=== PATIENT | female | born 1935 | race Caucasian/White ===

== ENCOUNTER 2017-10-22 17:23 | Inpatient (IN) | payer OTHER ==
[2017-10-22 19:07] LABS: Urine Blood NEGATIVE (NEG); Urine Glucose NEGATIVE (NEG); Urine Protein NEGATIVE (NEG); Urine Specific Gravity 1.015 (1.005-1.030)
[2017-10-22] MEDS ORDERED: PANTOPRAZOLE 40 MG INJ ONE (19:10)
[2017-10-22] MEDS ORDERED: NA CHLORIDE 0.9% 500 ML ONE (19:10)
[2017-10-22] MEDS ORDERED: CEFTRIAXONE/SWI 1gm 1 GM/10 ML SYR ONE (19:10)
[2017-10-22] MEDS ORDERED: ONDANSETRON 4 MG/2 ML VIAL ONE ×2 (19:10→20:41)
[2017-10-22] MEDS ORDERED: NA CHLORIDE 0.9% 1,000 ML ONE (19:11)
--- NOTE | 2017-10-22 19:28 | RAD REPORT ---
EXAM DESCRIPTION: Keo Single View10/22/2017 7:14 pm CLINICAL HISTORY: cough COMPARISON: January 2017 FINDINGS: The lungs appear clear of acute infiltrate. The heart is mildly to moderately enlarged. P acemaker leads are in place. IMPRESSION: No acute abnormalities displayed
[2017-10-22 19:46] LABS: Absolute Lymphocytes (CBC) 1.4 K/uL (0.7-4.9); Absolute Monocytes 0.4 K/uL (0.1-1.3); Absolute Neutrophil 3.8 K/uL (1.8-8.0); Basophils % 0.8 % (0-1.3); Eosinophils % 1.5 % (0-4.4); Hematocrit 36.6 % (36.0-45.0); MCH 29.8 pg (27.0-35.0); MCV 89.5 fL (80-100); MPV 7.7 fL (7.6-11.3); Monocytes % 7.4 % (3.3-12.3); Protime INR 1.08; RBC Red Blood Cell Count 4.09 M/uL (3.86-4.86)
[2017-10-22 19:50] LABS: Potassium 3.5 mEq/L (3.6-5.0)
[2017-10-22 19:56] LABS: Albumin 4.1 g/dL (3.2-5.5); Bilirubin Direct 0.1 mg/dL (0-0.2); Bilirubin Total 0.7 mg/dL (0.3-1.2); Magnesium 1.5 mg/dL (1.8-2.5); Protein, Total 8.1 g/dL (6.0-8.3)
[2017-10-22 19:59] LABS: CKMB Creatine Kinase MB 2.2 ng/ml (0.3-4.0)
--- NOTE | 2017-10-22 20:32 | EDPHYS ---
Physician Documentation [facility] Name: Mari Chirinos Age: 82 yrs Sex: Female : 1935 Arrival Date: 10/22/2017 Time: 17:27 Bed 3 Private MD: Manish Hoffman ED Physician Joe Valdez HPI: 10/22 18:38 This 82 yrs old Female presents to ER via Ambulatory with complaints of amanda Nausea/Vomiting. 18:38 The patient presents to the emergency department with nausea, vomiting, abdominal pain. amanda Onset: The symptoms/episode began/occurred 2 day(s) ago. Possible causes: unknown. The symptoms are aggravated by nothing. Associated signs and symptoms: The patient has no apparent associated signs or symptoms. Severity of symptoms: At their worst the symptoms were mild in the emergency department the symptoms are unchanged. The patient has experienced similar episodes in the past, a few times. Historical: - Allergies: 17:34 Codeine; aj 17:34 Macrobid; aj - Home Meds: 17:34 amlodipine 10 mg tab 1 tab once daily [Active]; gabapentin 100 mg Oral cap 3 times per aj day [Active]; losartan-hydrochlorothiazide 100-25 mg Oral tab 1 tab once daily [Active]; metformin 500 mg Oral tab 2 tabs 2 times per day [Active]; omeprazole 20 mg Oral cpDR 1 cap once daily [Active]; - PMHx: 17:34 Diabetes - NIDDM; GERD; Hypertension; neuropathy; Pacemaker; aj - PSHx: 17:34 Bilateral Knee Replacements; Hysterectomy; Vaginal Surgery; aj - Immunization history:: Adult Immunizations up to date. - Social history:: Smoking status: Patient/guardian denies using tobacco. - Ebola Screening: : Patient negative for fever greater than or equal to 101.5 degrees Fahrenheit, and additional compatible Ebola Virus Disease symptoms Patient denies exposure to infectious person Patient denies travel to an Ebola-affected area in the 21 days before illness onset No symptoms or risks identified at this time. ROS: 18:39 Constitutional: Negative for fever, chills, and weight loss, Eyes: Negative for injury, amanda pain, redness, and discharge, ENT: Negative for injury, pain, and discharge, Neck: Negative for injury, pain, and swelling, Cardiovascular: Negative for chest pain, palpitations, and edema, Respiratory: Negative for shortness of breath, cough, wheezing, and pleuritic chest pain, Back: Negative for injury and pain, : Negative for injury, bleeding, discharge, and swelling, MS/Extremity: Negative for injury and deformity, Skin: Negative for injury, rash, and discoloration, Neuro: Negative for headache, weakness, numbness, tingling, and seizure, Psych: Negative for depression, anxiety, suicide ideation, homicidal ideation, and hallucinations, Allergy/Immunology: Negative for hives, rash, and allergies, Endocrine: Negative for neck swelling, polydipsia, polyuria, polyphagia, and marked weight changes, Hematologic/Lymphatic: Negative for swollen nodes, abnormal bleeding, and unusual bruising. 18:39 Abdomen/GI: Positive for abdominal pain, nausea, vomiting, of the right upper quadrant, left upper quadrant, right lower quadrant and left lower quadrant. Exam: 18:39 Constitutional: This is a well developed, well nourished patient who is awake, alert, amanda and in no acute distress. Head/Face: Normocephalic, atraumatic. Eyes: Pupils equal round and reactive to light, extra-ocular motions intact. Lids and lashes normal. Conjunctiva and sclera are non-icteric and not injected. Cornea within normal limits. Periorbital areas with no swelling, redness, or edema. ENT: Nares patent. No nasal discharge, no septal abnormalities noted. Tympanic membranes are normal and external auditory canals are clear. Oropharynx with no redness, swelling, or masses, exudates, or evidence of obstruction, uvula midline. Mucous membranes moist. Neck: Trachea midline, no thyromegaly or masses palpated, and no cervical lymphadenopathy. Supple, full range of motion without nuchal rigidity, or vertebral point tenderness. No Meningismus. Chest/axilla: Normal chest wall appearance and motion. Nontender with no deformity. No lesions are appreciated. Cardiovascular: Regular rate and rhythm with a normal S1 and S2. No gallops, murmurs, or rubs. Normal PMI, no JVD. No pulse deficits. Respiratory: Lungs have equal breath sounds bilaterally, clear to auscultation and percussion. No rales, rhonchi or wheezes noted. No increased work of breathing, no retractions or nasal flaring. Back: No spinal tenderness. No costovertebral tenderness. Full range of motion. Female : Normal external genitalia. Skin: Warm, dry with normal turgor. Normal color with no rashes, no lesions, and no evidence of cellulitis. MS/ Extremity: Pulses equal, no cyanosis. Neurovascular intact. Full, normal range of motion. Neuro: Awake and alert, GCS 15, oriented to person, place, time, and situation. Cranial nerves II-XII grossly intact. Motor strength 5/5 in all extremities. Sensory grossly intact. Cerebellar exam normal. Normal gait. Psych: Awake, alert, with orientation to person, place and time. Behavior, mood, and affect are within normal limits. 18:39 Abdomen/GI: Inspection: distension, Bowel sounds: normal, Palpation: mild abdominal tenderness, in all quadrants, Liver: no appreciated palpable abnormalities, Hernia: not appreciated. Vital Signs: 17:34 BP 157 / 78; Pulse 76; Resp 16; Temp 98.1; Pulse Ox 98% on R/A; Weight 79.38 kg; Height aj 5 ft. 2 in. (157.48 cm); 19:00 BP 140 / 77; Pulse 60; Resp 16; Pulse Ox 97% ; bp 20:01 BP 142 / 70; Pulse 68; Resp 16; Pulse Ox 96% on R/A; rv 21:00 BP 152 / 98; Pulse 65; Resp 16; Pulse Ox 99% ; bp 22:00 BP 149 / 80; Pulse 71; Resp 16; Pulse Ox 98% ; bp 17:34 Body Mass Index 32.01 (79.38 kg, 157.48 cm) MDM: 18:16 Patient medically screened. [facility] 18:40 Data reviewed: vital signs, nurses notes, lab test result(s), EKG, radiologic studies, [facility] CT scan, plain films. 10/22 18:31 Order name: Urine Dipstick--Ancillary (enter results); Complete Time: 20:26 10/22 18:36 Order name: Basic Metabolic Panel; Complete Time: 20:26 [facility] 10/22 18:36 Order name: BNP; Complete Time: 20:26 [facility] 10/22 18:36 Order name: CBC with Diff; Complete Time: 20:26 [facility] 10/22 18:36 Order name: Ckmb; Complete Time: 20:26 [facility] 10/22 18:36 Order name: CPK; Complete Time: 20:26 [facility] 10/22 18:36 Order name: LFT's; Complete Time: 20:26 [facility] 10/22 18:36 Order name: Magnesium; Complete Time: 20:26 [facility] 10/22 18:36 Order name: PT-INR; Complete Time: 20:26 [facility] 10/22 18:36 Order name: Ptt, Activated; Complete Time: 20:26 [facility] 10/22 18:36 Order name: Troponin (emerg Dept Use Only); Complete Time: 20:26 [facility] 10/22 18:36 Order name: Lipase; Complete Time: 20:26 [facility] 10/22 18:37 Order name: Urine Culture [facility] 10/22 20:28 Order name: Urine Osmolality [facility] 10/22 18:36 Order name: XRAY Chest (1 view); Complete Time: 20:26 [facility] 10/22 18:36 Order name: EKG; Complete Time: 18:37 [facility] 10/22 18:36 Order name: Cardiac monitoring; Complete Time: 19:16 [facility] 10/22 18:36 Order name: EKG - Nurse/Tech; Complete Time: 19:15 [facility] 10/22 18:36 Order name: IV Saline Lock; Complete Time: 18:46 [facility] 10/22 18:36 Order name: CT Abd/Pelvis - W/Contrast; Complete Time: 20:39 [facility] 10/22 20:28 Order name: Osmolality, Serum [facility] 10/22 20:28 Order name: Urine Sodium Random [facility] 10/22 18:36 Order name: Labs collected and sent; Complete Time: 18:46 [facility] 10/22 18:36 Order name: O2 Per Protocol; Complete Time: 18:46 [facility] 10/22 18:36 Order name: O2 Sat Monitoring; Complete Time: 18:46 [facility] 10/22 18:36 Order name: Urine Dipstick-Ancillary (obtain specimen); Complete Time: 18:46 [facility] Administered Medications: Discontinued: NS 0.9% 1000 ml IV at 125 ml/hr continuous 19:00 Drug: NS 0.9% 500 ml Route: IV; Rate: bolus; Site: left antecubital; bp 19:00 Drug: NS 0.9% 1000 ml Route: IV; Rate: 125 ml/hr; Site: left antecubital; bp 19:00 Drug: ProTONIX 40 mg Route: IVP; Site: left antecubital; bp 19:27 Follow up: Response: Nausea is decreased bp 19:00 Drug: Zofran 4 mg Route: IVP; Site: left antecubital; bp 19:28 Follow up: Response: Nausea is decreased bp 19:00 Drug: Rocephin - (cefTRIAXone) 1 grams Route: IVPB; Infused Over: 30 mins; Site: left bp antecubital; 20:26 Follow up: Response: No adverse reaction rv 20:45 Drug: Magnesium Sulfate 1 grams Route: IVPB; Infused Over: 1 hrs; Site: left bp antecubital; 21:18 Follow up: IV Status: Completed infusion bp 20:45 Drug: NS 0.9% with KCl 20 mEq/L 1000 ml Route: IV; Rate: 100 ml/hr; Site: left bp antecubital; 21:15 Drug: Zofran 4 mg Route: IVP; Site: left antecubital; bp 21:17 Follow up: Response: Marked relief of symptoms bp Disposition: 10/22/17 20:32 Hospitalization ordered by Lyric Jiménez for Inpatient Admission. Preliminary diagnosis are Abdominal tenderness, Cystitis, Vomiting, Hypokalemia, Hypomagnesemia. - Bed requested for Telemetry/MedSurg (Inpatient). - Status is Inpatient Admission. bp - Condition is Fair. - Problem is new. - Symptoms have improved. UTI on Admission? Yes Signatures: Dispatcher [employer] EDMS Naomi Vee RN RN kl Myers, Amanda, RN RN aj Anderson, Corey, MD MD cha Peltier, Brian, RN RN bp Vicente, Ronaldo RN rv Corrections: (The following items were deleted from the chart) 21:31 20:32 Hospitalization Ordered by Lyric Jiménez MD for Inpatient Admission. Preliminary diagnosis is Abdominal tenderness; Cystitis; Vomiting; Hypokalemia; Hypomagnesemia. Bed requested for Telemetry/MedSurg (Inpatient). Status is Inpatient Admission. Condition is Fair. Problem is new. Symptoms have improved. UTI on Admission? Yes. amanda 22:17 21:31 10/22/2017 20:32 Hospitalization Ordered by Lyric Jiménez MD for Inpatient bp Admission. Preliminary diagnosis is Abdominal tenderness; Cystitis; Vomiting; Hypokalemia; Hypomagnesemia. Bed requested for Telemetry/MedSurg (Inpatient). Status is Inpatient Admission. Condition is Fair. Problem is new. Symptoms have improved. UTI on Admission? Yes. kl
--- NOTE | 2017-10-22 20:32 | ER ---
Nurse's Notes [facility] Name: Mari Chirinos Age: 82 yrs Sex: Female : 1935 Arrival Date: 10/22/2017 Time: 17:27 Bed 3 Private MD: Manish Hoffman Diagnosis: Abdominal tenderness;Cystitis;Vomiting;Hypokalemia;Hypomagnesemia Presentation: 10/22 17:32 Presenting complaint: Patient states: Nausea for 4 days, vomiting x 1 episode. aj Transition of care: patient was not received from another setting of care. Onset of symptoms was October 18, 2017. Risk Assessment: Do you want to hurt yourself or someone else? Patient reports no desire to harm self or others. Care prior to arrival: None. 17:32 Method Of Arrival: Ambulatory aj 17:32 Acuity: JOJO 3 aj 21:59 Initial Sepsis Screen: Does the patient meet any 2 criteria? No. Patient's initial bp sepsis screen is negative. Does the patient have a suspected source of infection? No. Patient's initial sepsis screen is negative. Triage Assessment: 17:34 General: Appears in no apparent distress. comfortable, Behavior is calm, cooperative, aj appropriate for age. Pain: Denies pain. Neuro: Level of Consciousness is awake, alert, obeys commands, Oriented to person, place, time, situation, Appropriate for age. Respiratory: Airway is patent Respiratory effort is even, unlabored, Respiratory pattern is regular, symmetrical. GI: Reports nausea, vomiting. Derm: Skin is intact, is healthy with good turgor, Skin is pink, warm \T\ dry. normal. Historical: - Allergies: 17:34 Codeine; aj 17:34 Macrobid; aj - Home Meds: 17:34 amlodipine 10 mg tab 1 tab once daily [Active]; gabapentin 100 mg Oral cap 3 times per aj day [Active]; losartan-hydrochlorothiazide 100-25 mg Oral tab 1 tab once daily [Active]; metformin 500 mg Oral tab 2 tabs 2 times per day [Active]; omeprazole 20 mg Oral cpDR 1 cap once daily [Active]; - PMHx: 17:34 Diabetes - NIDDM; GERD; Hypertension; neuropathy; Pacemaker; aj - PSHx: 17:34 Bilateral Knee Replacements; Hysterectomy; Vaginal Surgery; aj - Immunization history:: Adult Immunizations up to date. - Social history:: Smoking status: Patient/guardian denies using tobacco. - Ebola Screening: : Patient negative for fever greater than or equal to 101.5 degrees Fahrenheit, and additional compatible Ebola Virus Disease symptoms Patient denies exposure to infectious person Patient denies travel to an Ebola-affected area in the 21 days before illness onset No symptoms or risks identified at this time. Screenin:00 Abuse screen: Denies threats or abuse. Denies injuries from another. Nutritional sg screening: No deficits noted. Tuberculosis screening: No symptoms or risk factors identified. Never had TB. Fall Risk None identified. Assessment: 18:00 General: Appears in no apparent distress. comfortable, well groomed, well developed, sg well nourished, Behavior is calm, cooperative, appropriate for age. Pain: Denies pain. Neuro: Level of Consciousness is awake, alert, obeys commands, Oriented to person, place, time, situation, Sorting Livestock Worker are equal bilaterally Speech is normal, Facial symmetry appears normal. Cardiovascular: Capillary refill is brisk in bilateral fingers Patient's skin is warm and dry. Chest pain is denied. Respiratory: Airway is patent Respiratory effort is even, unlabored, Respiratory pattern is regular, symmetrical, Breath sounds are clear. GI: Abdomen is round non-distended, Reports intolerance of food, nausea, vomiting, decreased appetite. : No signs and/or symptoms were reported regarding the genitourinary system. EENT: No signs and/or symptoms were reported regarding the EENT system. Derm: Skin is pink, warm \T\ dry. Musculoskeletal: No signs and/or symptoms reported regarding the musculoskeletal system. 18:20 Reassessment: Patient appears in no apparent distress at this time. Penny hvac maintenance technician at chairside, pt refused to get into the bed, requests to stay in the wheelchair, to get IV initiated. 19:00 Reassessment: RECD REPORT FROM RODRIGO GUTIERREZ. 82YO WF P/W N/V AND FATIGUE. AOx4, VS STABLE ON bp MONITOR, NO VOMITING AT THIS TIME. CT PENDING. 20:02 General: daughter's cell phone number: ([phone]) Nicole Chirinos. rv 20:12 Reassessment: PT TO CT WITH VICE [employer]ELOPMENT. rv 21:30 Reassessment: ADMIT MD AT B/S, BED ASSIGNMENT PENDING. bp Vital Signs: 17:34 BP 157 / 78; Pulse 76; Resp 16; Temp 98.1; Pulse Ox 98% on R/A; Weight 79.38 kg; Height aj 5 ft. 2 in. (157.48 cm); 19:00 BP 140 / 77; Pulse 60; Resp 16; Pulse Ox 97% ; bp 20:01 BP 142 / 70; Pulse 68; Resp 16; Pulse Ox 96% on R/A; rv 21:00 BP 152 / 98; Pulse 65; Resp 16; Pulse Ox 99% ; bp 22:00 BP 149 / 80; Pulse 71; Resp 16; Pulse Ox 98% ; bp 17:34 Body Mass Index 32.01 (79.38 kg, 157.48 cm) aj ED Course: 17:27 Patient arrived in ED. sb2 17:27 Manish Hoffman MD is Private Physician. sb2 17:33 Triage completed. aj 17:34 Arm band placed on left wrist. Patient placed in an exam room. aj 18:15 Inserted saline lock: 22 gauge in right antecubital area, using aseptic technique. 3 Blood collected. 18:16 Joe Valdez MD is Attending Physician. amanda 18:45 IV discontinued, intact, bleeding controlled, No redness/swelling at site. Pressure dh3 dressing applied. 18:45 Initial lab(s) drawn, by wy, sent to lab. Inserted saline lock: 20 gauge in left 3 antecubital area, using aseptic technique. Blood collected. 18:46 Urine collected: hat, clear. dh3 19:00 Patient has correct armband on for positive identification. Bed in low position. Call bp light in reach. Adult w/ patient. 19:11 X-ray completed. Portable x-ray completed in exam room. Patient tolerated procedure kc2 well. 19:12 XRAY Chest (1 view) In Process Unspecified. EDMS 19:15 EKG done, by ED staff, reviewed by Joe Valdez MD. dh3 19:26 Manish Lucas, MATT is Primary Nurse. bp 20:14 CT Abd/Pelvis - W/Contrast In Process Unspecified. EDMS 20:30 Lyric Jiménez MD is Hospitalizing Provider. amanda 21:58 No provider procedures requiring assistance completed. Patient admitted, IV remains in bp place. Administered Medications: Discontinued: NS 0.9% 1000 ml IV at 125 ml/hr continuous 19:00 Drug: NS 0.9% 500 ml Route: IV; Rate: bolus; Site: left antecubital; bp 19:00 Drug: NS 0.9% 1000 ml Route: IV; Rate: 125 ml/hr; Site: left antecubital; bp 19:00 Drug: ProTONIX 40 mg Route: IVP; Site: left antecubital; bp 19:27 Follow up: Response: Nausea is decreased bp 19:00 Drug: Zofran 4 mg Route: IVP; Site: left antecubital; bp 19:28 Follow up: Response: Nausea is decreased bp 19:00 Drug: Rocephin - (cefTRIAXone) 1 grams Route: IVPB; Infused Over: 30 mins; Site: left bp antecubital; 20:26 Follow up: Response: No adverse reaction rv 20:45 Drug: Magnesium Sulfate 1 grams Route: IVPB; Infused Over: 1 hrs; Site: left bp antecubital; 21:18 Follow up: IV Status: Completed infusion bp 20:45 Drug: NS 0.9% with KCl 20 mEq/L 1000 ml Route: IV; Rate: 100 ml/hr; Site: left bp antecubital; 21:15 Drug: Zofran 4 mg Route: IVP; Site: left antecubital; bp 21:17 Follow up: Response: Marked relief of symptoms bp Outcome: 20:32 Decision to Hospitalize by Provider. [facility] 21:59 Condition: stable bp 21:59 Instructed on the need for admit. 22:12 Admitted to Med/surg accompanied by tech, family with patient, via wheelchair, room bp 209, with chart, Report called to NELA GUTIERREZ 22:17 Patient left the ED. bp Signatures: Dispatcher [employer] EDMS Arnaud Driscoll RN Salina Porter RN RN aj Anderson, Corey, MD MD cha Carr, Kelsie kc2 Penny Fowler 3 Manish Lucas RN RN bp Billeau, Sheri sb2 Andrew Cohen RN RN rv
--- NOTE | 2017-10-22 20:34 | RAD REPORT ---
EXAM DESCRIPTION: CT - Abdomen Pelvis W Contrast - 10/22/2017 8:14 pm CLINICAL HISTORY: Abdominal pain. Nausea for 4 days COMPARISON: 2016 TECHNIQUE: Computed axial tomography of the abdomen and pelvis was obtained. 100 cc Isovue-300 is ad ministered intravenously. Oral contrast was given. All CT scans are performed using dose optimization technique as appropriate and may include automated exposure control or mA/KV adjustment according to patient size. FINDINGS: A couple of subcentimeter low-density lesions within the liver are unchanged likely repres enting cysts. The gallbladder has been removed. Prominence of the biliary tree is stable. The spleen, pancreas and adrenals appear unremarkable. Extrarenal pelves are present. Borderline right hydronephrosis is seen. It is unchanged. A left renal arterial calcifications seen. A renal calculus is not noted. There is no evidence of diverticulitis. A small to moderate hiatal hernia is seen. Spondylosis involves lumbar spine resulting in spinal stenosis. IMPRESSION: Borderline right hydronephrosis unchanged from the prior exam. It is unclear whether th e dilatation is simply the result of an extrarenal pelvis or a mild UPJ stricture. Small to moderate hiatal hernia Spondylosis involving lumbar spine resulting in spinal stenosis
[2017-10-22] MEDS ORDERED: MAGNESIUM SULFATE 1 gm IVPB 1 GM/100 ML BAG IV ONE ×2 (20:37→22:30)
[2017-10-22] MEDS ORDERED: NS KCL 20MEQ 1,000 ML IV ONE (20:37)
--- NOTE | 2017-10-22 21:10 | P.HP ---
Certification for Inpatient Patient admitted to: Observation With expected LOS: <2 Midnights Practitioner: I am a practitioner with admitting privileges, knowledge of patient current condition, hospital course, and medical plan of care. Services: Services provided to patient in accordance with Admission requirements found in Title 42 Section 412.3 of the Code of Federal Regulations Patient History Date of Service: 10/22/17 Reason for admission: volume depletion History of Present Illness: Ms Chirinos is an 82 years old woman with history of HTN, DM II insulin dependent , came to ED complaining of abdominal pain, diffuse, associated with nausea and vomiting. Her symptoms started about 3 days ago. She is not able to tolerate food, due to nausea. She partially was drinking fluids, but not enough. She denied diarrhea, fever or chills. No burning urination, cough or chest pain either. At arrival she still feels nauseated, lab work was remarkable for hyponatremia, and hypochloremia, likely secondary to volume depletion. UA was abnormal as well consistent with UTI. She is afebrile. Allergies codeine [Codeine] Allergy (Verified 10/26/15 00:41) Itching/Hives/Rash pregabalin [From Lyrica] Adverse Reaction (Unknown, Verified 02/03/17 10:28) unknown ENAVAR Allergy (Uncoded 10/02/15 15:16) Itching/Hives/Rash Home Medications: Metformin HCl [Metformin HCl ER] 2 tab PO BID 02/10/12 Amlodipine [Norvasc*] 10 mg PO DAILY 10/02/15 Losartan Potassium [Cozaar] 100 mg PO DAILY 02/03/17 Meloxicam [Mobic*] 7.5 mg PO DAILY 02/03/17 Omeprazole 20 mg PO BEDTIME 02/03/17 traMADol HCL [Ultram*] 1 tab PO BID PRN 02/03/17 - Past Medical/Surgical History Diabetic: Yes -: DM-2 (NIDDM) -: DYSLIPIDEMIA -: HYPERTENSION -: CHOLECYSTECTOMY -: APPENDECTOMY -: BILATERAL CATARACTS -: knee replacement bilat/biomet product -: carpul tunnel bilat wrist/hands -: hip right replacement -: r.shoulder replacement - Family History Family History: Reviewed- Non-Contributory - Social History Smoking Status: Never smoker Alcohol use: No CD- Drugs: No Caffeine use: Yes Place of Residence: Home Review of Systems 10-point ROS is otherwise unremarkable Physical Examination - Physical Exam General: Alert, In no apparent distress HEENT: Atraumatic, PERRLA, Mucous membr. moist/pink, EOMI, Sclerae nonicteric Neck: Supple, 2+ carotid pulse no bruit, No LAD, Without JVD or thyroid abnormality Respiratory: Clear to auscultation bilaterally, Normal air movement Cardiovascular: Regular rate/rhythm, Normal S1 S2 Gastrointestinal: Normal bowel sounds, No tenderness Musculoskeletal: No tenderness Integumentary: No rashes Neurological: Normal speech, Normal strength at 5/5 x4 extr, Normal tone, Normal affect Lymphatics: No axilla or inguinal lymphadenopathy - Studies Laboratory Data (last 24 hrs) 10/22/17 19:15: PT 12.8 H, INR 1.08, APTT 27.1 10/22/17 19:15: WBC 5.7, Hgb 12.2, Hct 36.6, Plt Count 205 10/22/17 19:15: B-Natriuretic Peptide 223 H 10/22/17 19:15: Sodium 125 L, Potassium 3.5 L, BUN 10, Creatinine 0.67, Glucose 104, Magnesium 1.5 L, Total Bilirubin 0.7, AST 29, ALT 18, Alkaline Phosphatase 64, Lipase 20 L Assessment and Plan - Problems (Diagnosis) (1) Nausea & vomiting Current Visit: Yes Status: Acute Qualifiers: Vomiting type: unspecified Vomiting Intractability: unspecified Qualified Code(s): R11.2 - Nausea with vomiting, unspecified (2) Hyponatremia Current Visit: Yes Status: Acute (3) Abdominal pain Onset Date: 10/28/15 Current Visit: No Status: Acute Qualifiers: Abdominal location: generalized Qualified Code(s): R10.84 - Generalized abdominal pain (4) Hypokalemia Onset Date: 10/28/15 Current Visit: No Status: Acute (5) UTI (urinary tract infection) Onset Date: 10/28/15 Current Visit: No Status: Acute Qualifiers: Urinary tract infection type: acute cystitis Hematuria presence: without hematuria Qualified Code(s): N30.00 - Acute cystitis without hematuria (6) Vulva cancer Onset Date: 10/28/15 Current Visit: No Status: Acute (7) Diabetes mellitus, type II Onset Date: 09/13/17 Current Visit: No Status: Chronic Qualifiers: Diabetes mellitus terminal operations supervisor insulin use: without penitentiary use Diabetes mellitus complication status: without complication Qualified Code(s): E11.9 - Type 2 diabetes mellitus without complications - Plan #1 nausea and vomiting: Possible secondary to UTI. CT abd/pelvis shows borderline right hydronephrosis unchanged from the prior exam. She will need Urologist evaluation upon discharge. Will give antiemetic medication, start clear liquids when symptoms improved. #2 Hyponatremia: likely due to volume depletion, will order IV NS infusion. She was also on HCTZ, that might contribute to have low sodium levels. Will hold this medication at this point. #3 UTI: will start IV Rocephin, urine culture in process. #4 DM: continue SSI. - Advance Directives Does patient have a Living Will: Yes Does patient have a Durable POA for Healthcare: No - Code Status/Comfort Care Code Status Assessed: Yes Code Status: Full Code
[2017-10-22] MEDS ORDERED: ACETAMINOPHEN 500 MG TAB PO PRN (22:14)
[2017-10-22] MEDS ORDERED: ONDANSETRON 4 MG/2 ML VIAL IV PRN (22:14)
[2017-10-22] MEDS: NA CHLORIDE 0.9% 1,000 ML IV SCH (23:17)
[2017-10-23 00:06] VITALS: O2SAT 97; BMI 31.3
[2017-10-23 05:09] LABS: Absolute Lymphocytes (CBC) 1.1 K/uL (0.7-4.9); Absolute Monocytes 0.5 K/uL (0.1-1.3); Absolute Neutrophil 3.5 K/uL (1.8-8.0); Basophils % 0.5 % (0-1.3); Eosinophils % 3.2 % (0-4.4); Hematocrit 31.3 % (36.0-45.0); Lymphocytes % 20.4 % (15.3-44.8); MCH 31.1 pg (27.0-35.0); MCV 87.8 fL (80-100); MPV 7.5 fL (7.6-11.3); Monocytes % 9.2 % (3.3-12.3); RBC Red Blood Cell Count 3.56 M/uL (3.86-4.86)
[2017-10-23 05:24] LABS: Magnesium 2.2 mg/dL (1.8-2.5); Potassium 3.3 mEq/L (3.6-5.0)
[2017-10-23] MEDS ORDERED: POTASSIUM 25 MEQ EFFERV TAB PO ONE (05:34)
--- NOTE | 2017-10-23 06:48 | EKG ---
Test Date: 2017-10-22 Test Time: 18:59:36 Senior Quality Control Technician: VINICIUS MEASUREMENT RESULTS: Intervals: Rate: 65 SD: 256 QRSD: 206 QT: 494 QTc: 513 [place]: P: SD: 256 QRS: -67 T: 103 INTERPRETIVE STATEMENTS: AV dual-paced rhythm with prolonged AV conduction with occasional ventricular-paced complexes Abnormal ECG Compared to ECG 02/02/2017 22:48:27 Atrial-sensed ventricular-paced complex(es) or rhythm no longer present Sinus rhythm no longer present Electronically Signed On 10-23-17 06:47:14 CDT by Ramses Mcarthur
[2017-10-23] MEDS: INSULIN -REGULAR HUMAN 50 UNIT/0.5 ML ML SQ SCH ×2 (07:30→11:30)
[2017-10-23] MEDS: NA CHLORIDE 0.9% 1,000 ML IV SCH (08:36)
[2017-10-23] MEDS ORDERED: CEFTRIAXONE 1 GM/NS 50 ML 1 GM/50 ML BAG IV SCH (09:00)
[2017-10-23] MEDS ORDERED: ENOXAPARIN 40 MG/0.4 ML SQ SCH (09:00)
[2017-10-23] MEDS ORDERED: CEFTRIAXONE/SWI 1gm 1 GM/10 ML SYR IV SCH (09:00)
[2017-10-23] MEDS ORDERED: NS KCL 20MEQ 20 MEQ/1,000 ML BAG IV SCH (11:00)
[2017-10-23] MEDS ORDERED: D50W 25 GM/50 ML SYRINGE IV PRN (14:01)
[2017-10-23] MEDS ORDERED: GLUCAGON 1 MG/VIAL IM PRN (14:01)
[2017-10-23 14:38] VITALS: BP 136/61; TEMP 98.7
--- NOTE | 2017-10-23 23:19 | DS ---
Discharge Diagnoses: 1.Possible urinary tract infection. 2.Hyponatremia. 3.Nausea and vomiting, resolved. 4.Right kidney hydronephrosis. 5.Diabetes. 6.Hypertension. Consult: None. Procedure: CAT scan of the abdomen and pelvis showed a right kidney hydronephrosis. Chest x-ray was normal. History Of Present Illness: Please refer to Dr. Gunter note. Hospital Course: Initially, the patient presented with history of mild abdominal pain associated wit h nausea and vomiting. CAT scan of the abdomen was normal except for a right hydronephrosis. She wa s found also to be hyponatremic. She was started on IV fluid for hydration. She improved tremendous ly over night and she demanded to go home. Today her potassium currently low at 3.3, so replace that with IV fluid and 20 of potassium before discharge. Her UA was suspicious for UTI but urine culture was pending at discharge, so I switch ceftriaxone to Cipro 500 mg twice a day for next 10 days. Her CAT scan showed right hydronephrosis, so I advised that she see Urology as soon as possible. We julee l provide the patient with contact information to make an appointment on Wednesday. Her creatinine was normal though. She will be discharged today in stable condition. Discharge Condition: Stable. Discharge Diet: 1800 ADA. Discharge Followup: With primary care physician in 1 week to check labs, follow up with Urology. patient to make an appointment the weekend. Discharge Medication: Cipro 500 mg twice a day for the next 7 days, amlodipine 10 mg once a day, Lip itor 10 mg orally once a day, galantamine 60 mg capsules daily, Cozaar 100 mg once a day, metformin 5 00 mg orally 2 tablets twice a day, omeprazole 20 mg orally once a day, mg orally twice a day. Discharge Physical Examination: Vital Signs: Blood pressure is 106/55, respiratory rate 18, pulse 6 5, temperature 97.2. General: She is alert, oriented x3. Does not look in any distress. HEENT: Atraumatic, normocephalic. PERRLA. Oral mucosa is moist. Neck: Supple. No JVD. No carotid bruits. Chest: Clear to auscultation. Good air entry. Heart: Regular rate and rhythm. S1, S2 normal. Abdomen: Soft, nontender. No masses. No hepatosplenomegaly. Positive bowel sounds. Extremities: No clubbing, cyanosis, or edema. Neurologic: Grossly intact. GOOD/EDDY Voice ID: [id number] Report ID: [id number]
== END 2017-10-23 15:00 | disposition home or self-care (01) | DRG 690 ==
LOC: ER 17:23 → ERHOLD 20:35 → 2ND 22:02
PROVIDERS: ADMIT Internal Medicine; ATTEND Internal Medicine
DX: N30.00 Acute cystitis without hematuria (principal); E87.1 Hypo-osmolality and hyponatremia; N13.30 Unspecified hydronephrosis; E87.6 Hypokalemia; E11.9 Type 2 diabetes mellitus without complications; I10 Essential (primary) hypertension; Z95.0 Presence of cardiac pacemaker; Z96.653 Presence of artificial knee joint, bilateral
CPT/HCPCS: 36415; 71045; 74177; 80048; 80076; 81003; 82550; 82553; 82962; 83690; 83735; 83880; 83930; 83935; 84132; 84300; 84484; 85025; 85610; 85730; 87086; 87088; 93005; 96365; 96375; 99285; C9113; J0696; J1650; J2405; J3475; J7030; Q9967

== ENCOUNTER 2018-11-09 08:41 | Emergency (ER) | payer OTHER ==
--- NOTE | 2018-11-09 09:56 | RAD REPORT ---
EXAM DESCRIPTION: CT - [id number] - 11/09/2018 9:20 am CLINICAL HISTORY: Trauma, head and neck injury. Headache, fall injury COMPARISON: No comparisons TECHNIQUE: Axial 5 mm thick images of the head were obtained. Axial 2 mm thick images of the cervical spine were obtained with sagittal and coronal reconstruction images generated and reviewed. All CT scans are performed using dose optimization technique as appropriate and may include automated exposure control or mA/KV adjustment according to patient size. FINDINGS: CT HEAD WITHOUT CONTRAST: No acute hemorrhage, hydrocephalus or extra-axial collection is identified.Moderate generalized brain atrophy is present with moderate periventricular and deep white matter chronic microvascular ischemi c changes.No areas of brain edema or midline shift. The paranasal sinuses and mastoids are clear.Left posterior scalp hematoma.The calvarium is intact. CT CERVICAL SPINE WITHOUT CONTRAST: No fracture or subluxation.Mild facet hypertrophy is present in the lower cervical levels.No preverte bral soft tissues swelling is identified. IMPRESSION: No acute intracranial or cervical spine findings.
--- NOTE | 2018-11-09 11:50 | EDPHYS ---
Physician Documentation [facility] Name: Mari Chirinos Age: 83 yrs Sex: Female : 1935 Arrival Date: 11/09/2018 Time: 08:43 Bed 3 Private MD: ED Physician Eliel Chilel HPI: 11/09 09:01 This 83 yrs old Female presents to ER via Ambulatory with complaints of pm1 Headache, Fall injury. 09:01 The patient or guardian reports pain. The complaints affect the left side of the back pm1 of head. Context of injury: The problem was sustained at a halfway or assisted living facility, resulted from a fall. Onset: The symptoms/episode began/occurred this morning, at 07:30. Associated signs and symptoms: Loss of consciousness: This patient did not experience any loss of consciousness. Pertinent negatives: neck pain, seizure, vomiting. Patient with witnessed fall backwards from a mechanical fall, trip at the halfway. Patient on blood thinners and sent to the ER for CT head. Historical: - Allergies: 08:53 Codeine; sg 08:53 Macrobid; sg 09:06 Codeine; ph 09:06 Macrobid; ph - Home Meds: 09:06 acetaminophen 325 mg Oral tab 2 tabs every 6 hours [Active]; cyanocobalamin (vitamin ph B-12) 1,000 mcg oral tab [Active]; Depakote Sprinkles 125 mg Oral cpSP 3 caps 2 times per day [Active]; ferrous sulfate 325 mg (65 mg iron) Oral TbEC [Active]; galantamine 12 mg oral tab 1 tab 2 times per day [Active]; Namenda 14 mg oral 1 tab daily [Active]; Namenda XR 21 mg oral CSpX 1 cap once daily [Active]; Namenda XR 28 mg oral CSpX 1 cap once daily [Active]; temazepam 15 mg Oral cap 1 cap once daily [Active]; tramadol 50 mg Oral tab 1 tab every 6 hours [Active]; Lipitor 10 mg Oral tab 1 tab once daily [Active]; Xarelto 20 mg oral tab 1 tab once daily [Active]; Zofran (as hydrochloride) 4 mg Oral tab 1 tabs every 8 hours [Active]; - PMHx: 08:53 Diabetes - NIDDM; GERD; Hypertension; neuropathy; Pacemaker; sg 09:06 Diabetes - NIDDM; GERD; Hypertension; neuropathy; Pacemaker; Dementia; Atrial Fib; ph - PSHx: 08:53 Bilateral Knee Replacements; Hysterectomy; Vaginal Surgery; sg 09:06 Bilateral Knee Replacements; Hysterectomy; Vaginal Surgery; ph - Immunization history: Last tetanus immunization: unknown. - Social history:: Smoking status: Patient/guardian denies using tobacco. - Ebola Screening: : No symptoms or risks identified at this time. ROS: 09:01 Constitutional: Negative for fever, chills, and weight loss, Eyes: Negative for injury, pm1 pain, redness, and discharge, ENT: Negative for injury, pain, and discharge, Neck: Negative for injury, pain, and swelling, Cardiovascular: Negative for chest pain, palpitations, and edema, Respiratory: Negative for shortness of breath, cough, wheezing, and pleuritic chest pain, Abdomen/GI: Negative for abdominal pain, nausea, vomiting, diarrhea, and constipation, Back: Negative for injury and pain, : Negative for injury, bleeding, discharge, and swelling, MS/Extremity: Negative for injury and deformity, Skin: Negative for injury, rash, and discoloration. 09:01 Neuro: Positive for headache, Negative for loss of consciousness, numbness, tingling. Exam: 09:01 Constitutional: This is a well developed, well nourished patient who is awake, alert, pm1 and in no acute distress. 09:01 Eyes: Pupils equal round and reactive to light, extra-ocular motions intact. Lids and lashes normal. Conjunctiva and sclera are non-icteric and not injected. Cornea within normal limits. Periorbital areas with no swelling, redness, or edema. ENT: Nares patent. No nasal discharge, no septal abnormalities noted. Tympanic membranes are normal and external auditory canals are clear. Oropharynx with no redness, swelling, or masses, exudates, or evidence of obstruction, uvula midline. Mucous membranes moist. Neck: Trachea midline, no thyromegaly or masses palpated, and no cervical lymphadenopathy. Supple, full range of motion without nuchal rigidity, or vertebral point tenderness. No Meningismus. Chest/axilla: Normal chest wall appearance and motion. Nontender with no deformity. No lesions are appreciated. Cardiovascular: Regular rate and rhythm with a normal S1 and S2. No gallops, murmurs, or rubs. Normal PMI, no JVD. No pulse deficits. Respiratory: Lungs have equal breath sounds bilaterally, clear to auscultation and percussion. No rales, rhonchi or wheezes noted. No increased work of breathing, no retractions or nasal flaring. Abdomen/GI: Soft, non-tender, with normal bowel sounds. No distension or tympany. No guarding or rebound. No evidence of tenderness throughout. Back: No spinal tenderness. No costovertebral tenderness. Full range of motion. Skin: Warm, dry with normal turgor. Normal color with no rashes, no lesions, and no evidence of cellulitis. MS/ Extremity: Pulses equal, no cyanosis. Neurovascular intact. Full, normal range of motion. 09:01 Head/face: Noted is no obvious of injury or deformity except contusion, that is superficial, of the left side of the back of head. 09:01 Neuro: Orientation: to person, baseline. Motor: is normal, moves all fours. Vital Signs: 08:50 BP 166 / 73; Pulse 65; Resp 17; Temp 97.9; Pulse Ox 98% on R/A; Weight 74.84 kg; Pain sg 0/10; 09:30 BP 169 / 70; Pulse 65; Resp 18; Pulse Ox 96% on R/A; ph 10:30 BP 138 / 72; Pulse 65; Resp 18; Pulse Ox 98% on R/A; ph Rodríguez Coma Score: 08:50 Eye Response: spontaneous(4). Verbal Response: confused(4). Motor Response: obeys sg commands(6). Total: 14. 09:01 Eye Response: spontaneous(4). Verbal Response: oriented(5). Motor Response: obeys pm1 commands(6). Total: 15. 09:30 Eye Response: spontaneous(4). Verbal Response: confused(4). Motor Response: obeys ph commands(6). Total: 14. 10:30 Eye Response: spontaneous(4). Verbal Response: confused(4). Motor Response: obeys ph commands(6). Total: 14. Trauma Score (Adult): 08:50 Eye Response: spontaneous(1); Verbal Response: confused(1); Motor Response: obeys sg commands(2); Systolic BP: > 89 mm Hg(4); Respiratory Rate: 10 to 29 per min(4); Rodríguez Score: 14; Trauma Score: 12 09:30 Eye Response: spontaneous(1); Verbal Response: confused(1); Motor Response: obeys ph commands(2); Systolic BP: > 89 mm Hg(4); Respiratory Rate: 10 to 29 per min(4); Rodríguez Score: 14; Trauma Score: 12 10:30 Eye Response: spontaneous(1); Verbal Response: confused(1); Motor Response: obeys ph commands(2); Systolic BP: > 89 mm Hg(4); Respiratory Rate: 10 to 29 per min(4); [place] Score: 14; Trauma Score: 12 MDM: 08:53 Patient medically screened. pm1 11:48 Data reviewed: vital signs. Data interpreted: Pulse oximetry: on room air is 98 %. pm1 Interpretation: normal. Counseling: I had a detailed discussion with the patient and/or guardian regarding: the historical points, exam findings, and any diagnostic results supporting the discharge/admit diagnosis, radiology results, the need for outpatient follow up, to return to the emergency department if symptoms worsen or persist or if there are any questions or concerns that arise at home. 11/09 08:53 Order name: CT Head C Spine; Complete Time: 10:29 pm1 Administered Medications: No medications were administered Disposition: 14:20 Co-signature as Attending Physician, Eliel Chilel MD I agree with the assessment and kdr plan of care. Disposition: 11/09/18 11:49 Discharged to Home. Impression: Superficial injury of head, Other fall on same level. - Condition is Stable. - Discharge Instructions: Head Injury, Adult, Fall Prevention in the Home, Fall Prevention in Hospitals, Adult. - Medication Reconciliation Form, Thank You Letter, Antibiotic Education, Prescription Opioid Use form. - Follow up: Emergency Department; When: As needed; Reason: Worsening of condition. Follow up: Private Physician; When: 2 - 3 days; Reason: Recheck today's complaints, Continuance of care, Re-evaluation by your physician. - Problem is new. - Symptoms have improved. Signatures: Dispatcher [employer] EDArnaud Conti RN RN sg Rittger, Kevin, MD MD [facility] Zuri Castellanos RN RN ss Mallory Gilliam RN RN ph Wilfrido Antoine, WETLANDS TECHNICIAN WETLANDS TECHNICIAN pm1 Corrections: (The following items were deleted from the chart) 12:07 11:49 11/09/2018 11:49 Discharged to Home. Impression: Superficial injury of headOther ss fall on same level. Condition is Stable. Forms are Medication Reconciliation Form, Thank You Letter, Antibiotic Education, Prescription Opioid Use. Follow up: Emergency Department; When: As needed; Reason: Worsening of condition. Follow up: Private Physician; When: 2 - 3 days; Reason: Recheck today's complaints, Continuance of care, Re-evaluation by your physician. Problem is new. Symptoms have improved. pm1
--- NOTE | 2018-11-09 11:50 | ER ---
Nurse's Notes [facility] Name: Mari Chirinos Age: 83 yrs Sex: Female : 1935 Arrival Date: 11/09/2018 Time: 08:43 Bed 3 Private MD: Diagnosis: Other fall on same level;Superficial injury of head Presentation: 11/09 08:44 Presenting complaint: EMS states: pt fell at apporx 0730 this morning, half-way sg staff reports that the pt fell from standing and hit the back of her head. denies LOC, was ambulatory with walker at the half-way per EMS, ate breakfast this morning and took her morning meds. Care prior to arrival: None. Mechanism of Injury: Fall from standing position. Trauma event details: Injury occurred in the [facility], Injury occurred: [facility] Injury occurred: November 09, 2018 Injury occurred at: 07:30. 08:44 Method Of Arrival: Ambulatory 08:44 Acuity: JOJO 2 09:26 Transition of care: patient was received from another setting of care (long-term care facility), [facility]. Onset of symptoms was November 09, 2018. Risk Assessment: Do you want to hurt yourself or someone else? Patient reports no desire to harm self or others. Initial Sepsis Screen: Does the patient meet any 2 criteria? No. Patient's initial sepsis screen is negative. Initial Sepsis Screen: Does the patient meet any 2 criteria? Does the patient have a suspected source of infection? No. Patient's initial sepsis screen is negative. Trauma Activation: Alert Physician: ED Physician; Name: ; Notified At: ; Arrived At: Physician: General Surgeon; Name: ; Notified At: ; Arrived At: Physician: Radiology; Name: ; Notified At: ; Arrived At: Physician: Respiratory; Name: ; Notified At: ; Arrived At: Physician: Lab; Name: ; Notified At: ; Arrived At: Historical: - Allergies: 08:53 Codeine; sg 08:53 Macrobid; sg 09:06 Codeine; ph 09:06 Macrobid; ph - Home Meds: 09:06 acetaminophen 325 mg Oral tab 2 tabs every 6 hours [Active]; cyanocobalamin (vitamin ph B-12) 1,000 mcg oral tab [Active]; Depakote Sprinkles 125 mg Oral cpSP 3 caps 2 times per day [Active]; ferrous sulfate 325 mg (65 mg iron) Oral TbEC [Active]; galantamine 12 mg oral tab 1 tab 2 times per day [Active]; Namenda 14 mg oral 1 tab daily [Active]; Namenda XR 21 mg oral CSpX 1 cap once daily [Active]; Namenda XR 28 mg oral CSpX 1 cap once daily [Active]; temazepam 15 mg Oral cap 1 cap once daily [Active]; tramadol 50 mg Oral tab 1 tab every 6 hours [Active]; Lipitor 10 mg Oral tab 1 tab once daily [Active]; Xarelto 20 mg oral tab 1 tab once daily [Active]; Zofran (as hydrochloride) 4 mg Oral tab 1 tabs every 8 hours [Active]; - PMHx: 08:53 Diabetes - NIDDM; GERD; Hypertension; neuropathy; Pacemaker; sg 09:06 Diabetes - NIDDM; GERD; Hypertension; neuropathy; Pacemaker; Dementia; Atrial Fib; ph - PSHx: 08:53 Bilateral Knee Replacements; Hysterectomy; Vaginal Surgery; sg 09:06 Bilateral Knee Replacements; Hysterectomy; Vaginal Surgery; ph - Immunization history: Last tetanus immunization: unknown. - Social history:: Smoking status: Patient/guardian denies using tobacco. - Ebola Screening: : No symptoms or risks identified at this time. Screenin:07 Abuse screen: Denies threats or abuse. Denies injuries from another. Nutritional ph screening: No deficits noted. Tuberculosis screening: No symptoms or risk factors identified. Fall Risk Fall in past 12 months (25 points). Secondary diagnosis (15 points) dementia, No IV (0 pts). Ambulatory Aid- None/Bed Rest/Nurse Assist (0 pts). Gait- Normal/Bed Rest/Wheelchair (0 pts) Mental Status- Overestimates/Forgets Limitations (15 pts.). Total Del Rosario Fall Scale indicates High Risk Score (45 or more points). Fall prevention measures have been instituted. Side Rails Up X 2 Placed Close to Nursing Station Frequent Obs/Assessments Occuring As available patient and family educated on Fall Prevention Program and Strategies. Primary Survey: 08:44 NO uncontrolled hemorrhage observed. A: The patient is alert. Airway: patent, No sg supplemental oxygen in use on arrival. Oral cavity: clear, Trachea midline. Breathing/Chest: Respiratory pattern: regular, Respiratory effort: spontaneous, unlabored, Breath sounds: clear, Chest inspection: symmetrical rise and fall of the chest. Circulation: Heart tones present. Pulses: palpable right radial artery and left radial artery. Skin color: pink. Disability Alert. 09:27 Exposure/Environment: There is no evidence of uncontrolled external bleeding. Obvious ph injury(ies) are noted at this time: hematoma to back of head A warming method has been applied: A warm blanket has been provided to the patient. 10:31 Reassessment Airway Airway Patent Breathing/Chest Respiratory pattern Regular ph Respiratory effort Spontaneous Unlabored Chest inspection Symmetrical Circulation Color [place] Temperature Warm Dry Disability Alert. Secondary Survey: 09:25 HEENT: Head Other hematoma noted to occipital area. Gastrointestinal: No deficits ph noted. Musculoskeletal: No deficits noted. Injury Description: hematoma to back of head. Assessment: 09:00 General: Appears in no apparent distress. comfortable, well groomed, Behavior is calm, ph cooperative, appropriate for age. Pain: Complains of pain in occipital area. Neuro: Level of Consciousness is awake, alert, obeys commands, Oriented to person, place, hx of dementia, pt at baseline. Reports headache occipital area. Cardiovascular: Capillary refill < 3 seconds in bilateral fingers Patient's skin is warm and dry. Respiratory: Airway is patent Respiratory effort is even, unlabored, Respiratory pattern is regular, symmetrical. GI: Patient currently denies abdominal pain, nausea, vomiting. Derm: Skin is fragile, is thin, Skin is pink, warm \T\ dry. Bruising that is on occipital area. Musculoskeletal: Circulation, motion, and sensation intact. Range of motion: intact in all extremities. 10:30 Reassessment: Patient appears in no apparent distress at this time. Patient and/or ph family updated on plan of care and expected duration. Pain level reassessed. Pt awake and alert, oriented to person and place, SO at bedside, VSS, awaiting CT results. 11:48 Reassessment: Patient appears in no apparent distress at this time. pt repositioned. sg 12:06 Reassessment: report given to [facility] staff member. Vital Signs: 08:50 BP 166 / 73; Pulse 65; Resp 17; Temp 97.9; Pulse Ox 98% on R/A; Weight 74.84 kg; Pain sg 0/10; 09:30 BP 169 / 70; Pulse 65; Resp 18; Pulse Ox 96% on R/A; ph 10:30 BP 138 / 72; Pulse 65; Resp 18; Pulse Ox 98% on R/A; ph [place] Coma Score: 08:50 Eye Response: spontaneous(4). Verbal Response: confused(4). Motor Response: obeys sg commands(6). Total: 14. 09:01 Eye Response: spontaneous(4). Verbal Response: oriented(5). Motor Response: obeys pm1 commands(6). Total: 15. 09:30 Eye Response: spontaneous(4). Verbal Response: confused(4). Motor Response: obeys ph commands(6). Total: 14. 10:30 Eye Response: spontaneous(4). Verbal Response: confused(4). Motor Response: obeys ph commands(6). Total: 14. Trauma Score (Adult): 08:50 Eye Response: spontaneous(1); Verbal Response: confused(1); Motor Response: obeys sg commands(2); Systolic BP: > 89 mm Hg(4); Respiratory Rate: 10 to 29 per min(4); [place] Score: 14; Trauma Score: 12 09:30 Eye Response: spontaneous(1); Verbal Response: confused(1); Motor Response: obeys ph commands(2); Systolic BP: > 89 mm Hg(4); Respiratory Rate: 10 to 29 per min(4); [place] Score: 14; Trauma Score: 12 10:30 Eye Response: spontaneous(1); Verbal Response: confused(1); Motor Response: obeys ph commands(2); Systolic BP: > 89 mm Hg(4); Respiratory Rate: 10 to 29 per min(4); Rodríguez Score: 14; Trauma Score: 12 ED Course: 08:43 Patient arrived in ED. ph 08:46 EKG done, by lighting technician. reviewed by Eliel Chilel MD. at1 08:50 Triage completed. sg 08:52 Wilfrido Antoine NP is PHCP. pm1 08:52 Eliel Chilel MD is Attending Physician. pm1 09:08 Mallory Gilliam, RN is Primary Nurse. ph 09:21 CT Head C Spine In Process Unspecified. EDMS 09:26 Arm band placed on. ph 09:28 Patient has correct armband on for positive identification. Bed in low position. Call ph light in reach. Side rails up X2. Pulse ox on. NIBP on. Warm blanket given. Head of bed elevated. 09:29 Patient maintains SpO2 saturation greater than 95% on room air. Thermoregulation: warm ph blanket given to patient. 10:32 No provider procedures requiring assistance completed. Patient did not have IV access ph during this emergency room visit. Administered Medications: No medications were administered Intake: 08:50 PO: 0ml; Total: 0ml. sg 10:30 PO: 0ml; Total: 0ml. ph Output: 10:30 Urine: 0ml; Total: 0ml. ph Outcome: 11:49 Discharge ordered by MD. pm1 12:07 Discharged to home via wheelchair, with family. 12:07 Condition: good 12:07 Discharge instructions given to patient, family, Instructed on discharge instructions, follow up and referral plans. Demonstrated understanding of instructions, follow-up care. 12:07 Patient left the ED. Signatures: Dispatcher [employer] EDMS Arnaud Driscoll RN RN sg Smirch, Shelby, RN RN Salina Mendoza, acquisition advisor EKG Tat1 Mallory Gilliam RN RN ph Marinas, Patrick, SCHOOL BUS DISPATCHER SCHOOL BUS DISPATCHER pm1
[2018-11-09 12:49] VITALS: TEMP 97.9
[2018-11-09 12:52] VITALS: BP 138/72; O2SAT 98
--- NOTE | 2018-11-10 07:34 | EKG ---
Test Date: 2018-11-09 Test Time: 08:47:04 Lodging Facilities Manager: BETTYE MEASUREMENT RESULTS: Intervals: Rate: 65 TX: 192 QRSD: 184 QT: 452 QTc: 470 [place]: P: 29 TX: 192 QRS: -66 T: 107 INTERPRETIVE STATEMENTS: AV sequential or dual chamber electronic pacemaker Compared to ECG 10/22/2017 18:59:36 Ventricular-paced complex(es) or rhythm no longer present Electronically Signed On 11-10-18 07:32:32 CDT by Ben Chamberlain
== END 2018-11-09 12:07 | disposition home or self-care (01) ==
LOC: ER 08:41
DX: S00.90XA Unspecified superficial injury of unspecified part of head, initial encounter (principal); W01.0XXA Fall on same level from slipping, tripping and stumbling without subsequent striking against object, initial encounter; Y92.129 Unspecified place in nursing home as the place of occurrence of the external cause; E11.9 Type 2 diabetes mellitus without complications; K21.9 Gastro-esophageal reflux disease without esophagitis; I10 Essential (primary) hypertension; F03.90 Unspecified dementia, unspecified severity, without behavioral disturbance, psychotic disturbance, mood disturbance, and anxiety; I48.91 Unspecified atrial fibrillation; Z88.1 Allergy status to other antibiotic agents; Z88.5 Allergy status to narcotic agent; Z79.01 Long term (current) use of anticoagulants; Z95.0 Presence of cardiac pacemaker
CPT/HCPCS: 70450; 72125; 93005; 99284

== ENCOUNTER 2019-04-24 16:56 | Inpatient (IN) | payer OTHER ==
[2019-04-24] MEDS ORDERED: NA CHLORIDE 0.9% 2,000 ML ONE (17:37)
--- NOTE | 2019-04-24 17:44 | RAD REPORT ---
EXAM DESCRIPTION: CT - Head Brain Wo Cont - 04/24/2019 5:34 pm CLINICAL HISTORY: CONFUSED Headache, drowsiness COMPARISON: Head Brain Wo Cont dated 09/02/2017 TECHNIQUE: All CT scans are performed using dose optimization technique as appropriate and may inclu de automated exposure control or mA/KV adjustment according to patient size. FINDINGS: No intracranial hemorrhage, hydrocephalus or extra-axial fluid collection.Advanced general ized brain atrophy is present with advanced periventricular and deep white matter chronic microvascul ar ischemic changes.No areas of brain edema or evidence of midline shift. The paranasal sinuses and mastoids are clear. The calvarium is intact. The vertebral arteries are hea vily calcified. IMPRESSION: No acute intracranial abnormality.
--- NOTE | 2019-04-24 17:52 | RAD REPORT ---
EXAM DESCRIPTION: RAD - Chest Single View - 04/24/2019 5:46 pm CLINICAL HISTORY: AMS Chest pain. COMPARISON: Chest Single View dated 10/22/2017; Chest Single View dated 02/02/2017; Chest Pa And Lat (2 Views) dated 08/12/2016; Chest Single View dated 10/25/2015 FINDINGS: Portable technique limits examination quality. The lungs are emphysematous but grossly clear. The heart is moderately enlarged in size with a dual l ead pacer device present. Right shoulder arthroplasty noted. IMPRESSION: No acute intrathoracic process suspected.
[2019-04-24 18:26] LABS: Absolute Lymphocytes (CBC) 1.3 K/uL (0.7-4.9); Basophils % 0.6 % (0-1.3); Hematocrit 32.5 % (36.0-45.0); Lymphocytes % 32.7 % (15.3-44.8); MPV 6.7 fL (7.6-11.3); RBC Red Blood Cell Count 3.61 M/uL (3.86-4.86)
[2019-04-24 18:50] LABS: ALT/SGPT 10 U/L (12-78); AST/SGOT 15 U/L (15-37); Albumin 2.3 g/dL (3.4-5.0); Alkaline Phosphatase 59 U/L (45-117); BUN Blood Urea Nitrogen 20 mg/dL (7-18); Bicarbonate 26 mmol/L (21-32); Bilirubin Direct 0.2 mg/dL (0-0.2); Bilirubin Total 0.4 mg/dL (0.2-1.0); CKMB Creatine Kinase MB < 1.0 ng/mL (0.3-3.6); Creatine Phosphokinase 30 U/L (26-192); Glucose Level 97 mg/dL (74-106); Lipase 50 U/L (73-393); Potassium 3.9 mmol/L (3.5-5.1); Protein, Total 6.3 g/dL (6.4-8.2); Sodium Level 137 mmol/L (136-145); Troponin (Emerg Dept Use Only) < 0.02 ng/mL (0.0-0.045)
--- NOTE | 2019-04-24 19:00 | RAD REPORT ---
EXAM DESCRIPTION: US - Extremity Venous Uni Ltd - 04/24/2019 6:51 pm CLINICAL HISTORY: leg swelling Leg swelling and edema. COMPARISON: No comparisons FINDINGS: Left lower extremity venous system was interrogated with Doppler technique. Normal flow, c ompressibility and augmentation was noted. There is no DVT present. IMPRESSION: No evidence of left lower extremity deep venous thrombosis.
--- NOTE | 2019-04-24 19:02 | ER ---
Nurse's Notes [facility] Name: Mari Chirinos Age: 84 yrs Sex: Female : 1935 Arrival Date: 04/24/2019 Time: 17:04 Bed 5 Private MD: Diagnosis: Left sided weakness, Confusion, dysphasia, dysarthria Presentation: 04/24 17:00 Presenting complaint: EMS states: pt normal Sunday April 21, 2019 per NH staff at [facility], pt experienced left sided facial droop with slurred speech and difficulty moving left arm. Today patient denies any symptoms, is aa\T\ox1 which is normal for patient per pt family, facial droop noted to the left side of face. Transition of care: patient was received from another setting of care (long-term care facility), [facility]. Onset of symptoms was April 21, 2019. Risk Assessment: Do you want to hurt yourself or someone else? Patient reports no desire to harm self or others. Initial Sepsis Screen: Does the patient meet any 2 criteria? No. Patient's initial sepsis screen is negative. Does the patient have a suspected source of infection? No. Patient's initial sepsis screen is negative. Care prior to arrival: Glucose check: 98. 17:00 Method Of Arrival: EMS: [facility] 17:00 Acuity: JOJO 3 Historical: - Allergies: 17:11 Codeine; 17:11 Macrobid; - Home Meds: 19:54 amlodipine 5 mg tab 1 tab once daily [Active]; atorvastatin 10 mg oral tab 1 tab lp1 nightly [Active]; buspirone 15 mg Oral tab 1 tab three times a day [Active]; cyanocobalamin (vitamin B-12) 1,000 mcg Oral tab daily [Active]; Depakote Sprinkles 125 mg Oral cpSP 3 caps 3 times per day [Active]; ferrous sulfate 325 mg (65 mg iron) Oral TbEC twice a day [Active]; Lasix 20 mg Oral tab 1 tab once daily [Active]; loperamide 2 mg Oral cap [Active]; melatonin 3 mg Oral tab 2 tab nightly [Active]; metoprolol tartrate 25 mg Oral tab 0.5 tab 2 times per day [Active]; Nuedexta 20-10 mg oral cap 1 cap daily [Active]; potassium chloride 20 mEq Oral TbER 1 tab once daily [Active]; rivaroxaban oral 20 mg oral 1 tab once daily [Active]; tramadol 50 mg Oral tab 1 tab every 6 hours for Pain [Active]; ABH Gel 1mg/25mg/1mg topically Q4h PRN [Active]; - PMHx: 17:11 Atrial Fib; Dementia; Diabetes - NIDDM; GERD; Hypertension; neuropathy; Pacemaker; sg - PSHx: 17:11 Bilateral Knee Replacements; Hysterectomy; Vaginal Surgery; sg - Immunization history:: Adult Immunizations unknown. - Social history:: Smoking status: Patient/guardian denies using tobacco. - Ebola Screening: : Patient negative for fever greater than or equal to 101.5 degrees Fahrenheit, and additional compatible Ebola Virus Disease symptoms Patient denies exposure to infectious person Patient denies travel to an Ebola-affected area in the 21 days before illness onset No symptoms or risks identified at this time. Screenin:11 The patient has not been NPO before screening. The patient is alert, able to follow sg commands. The patient exhibits slurred or garbled speech. The patient is not exhibiting difficulty speaking. The patient does not exhibit difficulty understanding words. The patient is able to swallow own secretions with no drooling or need for suction. Patient tolerated one teaspoon of water. No drooling, immediate coughing, gurgling, or clearing of the throat was noted. The patient tolerated 90mL of water. No drooling, immediate coughing, gurgling, or clearing of the throat was noted. The patient passed the bedside swallow screening. Oral medications may be given as ordered. Contact Physician for further diet orders. Provider notified of bedside swallow screening results: Eliel Chilel MD. 19:45 Abuse screen: Denies threats or abuse. Denies injuries from another. Nutritional lp1 screening: No deficits noted. Tuberculosis screening: No symptoms or risk factors identified. Fall Risk Total Del Rosario Fall Scale indicates High Risk Score (45 or more points). Fall prevention measures have been instituted. Side Rails Up X 2 Family Present and informed to notify staff if the need to leave the bedside As available patient and family educated on Fall Prevention Program and Strategies. Assessment: 17:12 General: Appears in no apparent distress. well groomed, well developed, well nourished, sg Behavior is calm, cooperative, appropriate for age. Neuro: Level of Consciousness is awake, obeys commands, confused, Oriented to person, Clinical Engineering Director are weak on left Moves all extremities. Facial droop on left. Cardiovascular: Heart tones S1 S2 present Patient's skin is warm and dry. Edema is 2+ to right wrist, right hand, left ankle, left foot, left wrist, left hand, right ankle and right foot Chest pain is denied. Respiratory: Airway is patent Respiratory effort is even, unlabored, Respiratory pattern is regular, symmetrical, Breath sounds are diminished in right posterior lower lobe. GI: Abdomen is round non-distended, Bowel sounds present X 4 quads. EENT: Nares are clear bilaterally Oral mucosa is dry. Throat is clear. Derm: Skin is pink, warm \T\ dry. Musculoskeletal: Range of motion: limited in left elbow and left wrist Swelling present in left arm. 17:30 Reassessment: Patient appears in no apparent distress at this time. xray at bedside. sg 18:15 Reassessment: Patient appears in no apparent distress at this time. lab contacted for sg assistance drawing additional labs due to patient difficult stick. 18:30 Reassessment: Patient appears in no apparent distress at this time. ultrasound at bedside at this time. 19:30 Reassessment: Patient appears in no apparent distress at this time. Family feeding lp1 patient pudding, tolerating well; Aware of pending admission. General: Behavior is calm, cooperative. Neuro: Level of Consciousness is awake, obeys commands, Oriented to person, Weakness in left hand(s) leg(s) Speech with expressive aphasia noted. Respiratory: Respiratory effort is even, unlabored. Derm: Skin is intact, Skin is dry, Skin is normal. 19:30 Pain: Unable to use pain scale. FLACC scale score is 0 out of 10. lp1 20:15 Reassessment: Lab at bedside, unable to collect all labs ordered. lp1 21:15 Reassessment: Patient appears in no apparent distress at this time. Patient in bed, lp1 confused, no apparent distress. Vital Signs: 17:00 BP 159 / 80; Pulse 70; Resp 17 S; Temp 97.2; Pulse Ox 100% on R/A; sg 17:00 Weight 97.52 kg; Height 5 ft. 4 in. (162.56 cm); sg 20:00 BP 159 / 81; Pulse 70; Resp 14; Pulse Ox 97% on R/A; lp1 20:50 BP 154 / 85; Pulse 70; Resp 16; Temp 98.4(O); Pulse Ox 95% ; ds4 21:39 BP 144 / 76; Pulse 70; Resp 14; Pulse Ox 96% on R/A; lp1 17:00 Body Mass Index 36.90 (97.52 kg, 162.56 cm) ED Course: 17:04 Patient arrived in ED. iw 17:06 Arnaud Driscoll, MATT is Primary Nurse. sg 17:06 Arm band placed on. sg 17:10 Triage completed. sg 17:18 Eliel Chilel MD is Attending Physician. kdr 18:13 CT Head Brain wo Cont In Process Unspecified. EDMS 18:15 Inserted saline lock: 22 gauge in left ,using aseptic technique. left upper chest wall. ms 18:16 Initial lab(s) drawn, by me, sent to lab. ms 18:53 US Extremity Venous Unilateral Ltd In Process Unspecified. EDMS 18:59 Cintia Larsen MD is Hospitalizing Provider. kdr 19:30 Patient has correct armband on for positive identification. Placed in gown. Bed in low lp1 position. Side rails up X2. security monitor on. Pulse ox on. NIBP on. 19:46 No provider procedures requiring assistance completed. Patient admitted, IV remains in lp1 place. 19:57 CT Abd/Pelvis - IV Contrast Only In Process Unspecified. EDMS 20:43 Notified ED physician of a critical lab result(s). lactate of 2.6 Dr Chilel notified. bb Administered Medications: 18:15 Drug: NS 0.9% (30 ml/kg) 30 ml/kg Route: IV; Rate: bolus; Site: Other; sg 21:07 Follow up: IV Status: Infusion continued upon admission lp1 Intake: 20:30 IV: 1000ml (IV Fluid); Total: 1000ml. lp1 Outcome: 19:01 Decision to Hospitalize by Provider. kdr 19:46 Condition: stable lp1 19:46 Instructed on the need for admit. 21:06 Admitted to Tele via stretcher, room 404, with chart, Report called to MATT Card lp1 21:39 Patient left the ED. lp1 Signatures: Dispatcher [employer] EDMS Arnaud Driscoll, RN RN sg Eliel Chilel MD MD kdr Ballard, Brenda, RN RN bb Williams, Irene, RN Vani Amin ms Carlitos, Yarely, RN RN lp1 Adrian Song ds4 Corrections: (The following items were deleted from the chart) 19:30 Reassessment: Patient appears in no apparent distress at this time. Family lp1 feeding patient pudding, tolerating well; Aware of pending admission lp1 : 19:30 General: Behavior is calm, cooperative, lp1 lp1 19:30 Neuro: Level of Consciousness is awake, obeys commands, Oriented to person, lp1 Weakness in left hand(s) leg(s) Speech with expressive aphasia noted, lp1 19:30 Respiratory: Respiratory effort is even, unlabored, lp1 lp1 19:30 Derm: Skin is intact, Skin is dry, Skin is normal, lp1 lp1
--- NOTE | 2019-04-24 19:03 | EDPHYS ---
Physician Documentation [facility] Name: Mari Chirinos Age: 84 yrs Sex: Female : 1935 Arrival Date: 04/24/2019 Time: 17:04 Bed 5 Private MD: ED Physician lEiel Chilel HPI: 04/24 17:22 This 84 yrs old Female presents to ER via EMS with complaints of S/S of kdr Possible Stroke - onset 3 days ago. 17:22 The patient's problem is reported as altered mental status, confused, weakness, in the kdr left upper extremity, in the left lower extremity. Onset: The symptoms/episode began/occurred at an unknown time. Duration: The episode is continuous. Context: the episode(s) was witnessed, by no one, symptoms became apparent at an unknown time, occurred at a senior living or assisted living facility, occurred while the patient was at rest. The symptoms are alleviated by nothing. The symptoms are aggravated by nothing. Associated signs and symptoms: The patient has no apparent associated signs or symptoms. Severity of symptoms: At their worst the symptoms were moderate in the emergency department the symptoms are unchanged. Patient's baseline: Neuro: alert but confused, Motor: Moves all but normally , Ambulation: unable to walk, stands for transfers, uses wheelchair. The patient has not experienced similar symptoms in the past. The patient has not recently seen a physician, The patient is in a senior living with changes in her mobility and care since about June of this year for which the grand daughter has little information and explanation.. Historical: - Allergies: 17:11 Codeine; sg 17:11 Macrobid; sg - Home Meds: 19:54 amlodipine 5 mg tab 1 tab once daily [Active]; atorvastatin 10 mg oral tab 1 tab lp1 nightly [Active]; buspirone 15 mg Oral tab 1 tab three times a day [Active]; cyanocobalamin (vitamin B-12) 1,000 mcg Oral tab daily [Active]; Depakote Sprinkles 125 mg Oral cpSP 3 caps 3 times per day [Active]; ferrous sulfate 325 mg (65 mg iron) Oral TbEC twice a day [Active]; Lasix 20 mg Oral tab 1 tab once daily [Active]; loperamide 2 mg Oral cap [Active]; melatonin 3 mg Oral tab 2 tab nightly [Active]; metoprolol tartrate 25 mg Oral tab 0.5 tab 2 times per day [Active]; Nuedexta 20-10 mg oral cap 1 cap daily [Active]; potassium chloride 20 mEq Oral TbER 1 tab once daily [Active]; rivaroxaban oral 20 mg oral 1 tab once daily [Active]; tramadol 50 mg Oral tab 1 tab every 6 hours for Pain [Active]; ABH Gel 1mg/25mg/1mg topically Q4h PRN [Active]; - PMHx: 17:11 Atrial Fib; Dementia; Diabetes - NIDDM; GERD; Hypertension; neuropathy; Pacemaker; sg - PSHx: 17:11 Bilateral Knee Replacements; Hysterectomy; Vaginal Surgery; sg - Immunization history:: Adult Immunizations unknown. - Social history:: Smoking status: Patient/guardian denies using tobacco. - Ebola Screening: : Patient negative for fever greater than or equal to 101.5 degrees Fahrenheit, and additional compatible Ebola Virus Disease symptoms Patient denies exposure to infectious person Patient denies travel to an Ebola-affected area in the 21 days before illness onset No symptoms or risks identified at this time. ROS: 17:22 Constitutional: Unable to obtain since the patinet was not able to communicate or kdr respond apprpriateluy to question consistently. She was able to relater her name but in the course of some responses, her speech would become unintelligble 17:22 Unable to obtain ROS due to altered mental status, baseline dementia. Exam: 17:34 Constitutional: This is a well developed, well nourished patient who is awake, alert, kdr and in no acute distress. Head/Face: Normocephalic, atraumatic. Eyes: Pupils equal round and reactive to light, extra-ocular motions intact. Lids and lashes normal. Conjunctiva and sclera are non-icteric and not injected. Cornea within normal limits. Periorbital areas with no swelling, redness, or edema. Neck: Trachea midline, no thyromegaly or masses palpated, and no cervical lymphadenopathy. Supple, full range of motion without nuchal rigidity, or vertebral point tenderness. No Meningismus. Chest/axilla: Normal chest wall appearance and motion. Nontender with no deformity. No lesions are appreciated. Cardiovascular: Regular rate and rhythm with a normal S1 and S2. No gallops, murmurs, or rubs. Normal PMI, no JVD. No pulse deficits. Respiratory: Lungs have equal breath sounds bilaterally, clear to auscultation and percussion. No rales, rhonchi or wheezes noted. No increased work of breathing, no retractions or nasal flaring. Abdomen/GI: Soft, non-tender, with normal bowel sounds. No distension or tympany. No guarding or rebound. No evidence of tenderness throughout. Back: No spinal tenderness. No costovertebral tenderness. Full range of motion. Skin: Warm, dry with normal turgor. Normal color with no rashes, no lesions, and no evidence of cellulitis. MS/ Extremity: Pulses equal, no cyanosis. Neurovascular intact. Full, normal range of motion. 17:34 Musculoskeletal/extremity: The left side appears to flaccid. Additionally, the left calf is noticeably more swollen than the right. 19:11 Radiologist reports: Nag for acute stroke kdr Vital Signs: 17:00 BP 159 / 80; Pulse 70; Resp 17 S; Temp 97.2; Pulse Ox 100% on R/A; sg 17:00 Weight 97.52 kg; Height 5 ft. 4 in. (162.56 cm); sg 20:00 BP 159 / 81; Pulse 70; Resp 14; Pulse Ox 97% on R/A; lp1 20:50 BP 154 / 85; Pulse 70; Resp 16; Temp 98.4(O); Pulse Ox 95% ; ds4 21:39 BP 144 / 76; Pulse 70; Resp 14; Pulse Ox 96% on R/A; lp1 17:00 Body Mass Index 36.90 (97.52 kg, 162.56 cm) sg MDM: 17:34 Data reviewed: vital signs, nurses notes, lab test result(s), radiologic studies. kdr Counseling: I had a detailed discussion with the patient and/or guardian regarding: the historical points, exam findings, and any diagnostic results supporting the discharge/admit diagnosis, lab results, radiology results. 19:01 Patient medically screened. [facility] 04/24 17:20 Order name: Basic Metabolic Panel; Complete Time: 18:50 kdr 04/24 17:20 Order name: Blood Culture Adult (2) kdr 04/24 17:20 Order name: CBC with Diff; Complete Time: 18:50 kdr 04/24 17:20 Order name: Ckmb; Complete Time: 18:50 kdr 04/24 17:20 Order name: CPK; Complete Time: 18:50 kdr 04/24 17:20 Order name: Lactate [facility] 04/24 17:20 Order name: LFT's; Complete Time: 18:50 kdr 04/24 17:20 Order name: Lipase; Complete Time: 18:50 kdr 04/24 17:20 Order name: Procalcitonin [facility] 04/24 17:20 Order name: Protime (+inr) [facility] 04/24 17:20 Order name: Ptt, Activated kdr 04/24 17:20 Order name: Troponin (emerg Dept Use Only); Complete Time: 18:50 kdr 04/24 17:20 Order name: Urine Microscopic Only [facility] 04/24 18:15 Order name: Blood Culture [facility] 04/24 17:20 Order name: CT Head Brain wo Cont; Complete Time: 18:50 [facility] 04/24 19:22 Order name: Urine Dipstick--Ancillary (enter results) [facility] 04/24 19:47 Order name: Urine Culture [facility] 04/24 20:36 Order name: CBC with Automated Diff [facility] 04/24 20:36 Order name: CBC with Automated Diff [facility] 04/24 20:36 Order name: Comprehensive Metabolic Panel [facility] 04/24 20:36 Order name: Comprehensive Metabolic Panel [facility] 04/24 20:36 Order name: Lipid Profile [facility] 04/24 20:36 Order name: Lipid Profile [facility] 04/24 20:36 Order name: Magnesium [facility] 04/24 20:36 Order name: Magnesium [facility] 04/24 20:36 Order name: Phosphorus [facility] 04/24 20:36 Order name: Phosphorus [facility] 04/24 20:36 Order name: Troponin I [facility] 04/24 20:36 Order name: Troponin I [facility] 04/24 20:36 Order name: Troponin I [facility] 04/24 17:20 Order name: Chest Single View XRAY [facility] 04/24 17:20 Order name: Accucheck; Complete Time: 19:30 [facility] 04/24 17:20 Order name: Cardiac monitoring; Complete Time: 18:17 kdr 04/24 17:20 Order name: EKG - Nurse/Tech; Complete Time: 18:17 kdr 04/24 17:20 Order name: IV Saline Lock - Large Bore; Complete Time: 18:17 [facility] 04/24 17:20 Order name: Labs collected and sent; Complete Time: 18:17 [facility] 04/24 17:20 Order name: O2 Per Protocol; Complete Time: 18:17 [facility] 04/24 17:20 Order name: O2 Sat Monitoring; Complete Time: 18:17 [facility] 04/24 17:20 Order name: Urine Dipstick-Ancillary (obtain specimen); Complete Time: 19:30 [facility] 04/24 17:34 Order name: US Extremity Venous Unilateral Ltd [facility] 04/24 18:15 Order name: Chest Single View; Complete Time: 18:50 [facility] 04/24 19:10 Order name: CT Abd/Pelvis - IV Contrast Only [facility] 04/24 20:36 Order name: Physical Therapy Consult [facility] 04/24 20:36 Order name: NPO [facility] 04/24 20:36 Order name: NPO [facility] 04/24 20:36 Order name: NPO [facility] 04/24 20:36 Order name: Echo with Doppler [facility] 04/24 20:36 Order name: EKG Electrocardiogram [facility] 04/24 20:37 Order name: Speech Therapy Consult [facility] Administered Medications: 18:15 Drug: NS 0.9% (30 ml/kg) 30 ml/kg Route: IV; Rate: bolus; Site: Other; 21:07 Follow up: IV Status: Infusion continued upon admission lp1 Disposition: 04/24/19 19:01 Hospitalization ordered by Cintia Larsen for Inpatient Admission. Preliminary diagnosis is Left sided weakness, Confusion, dysphasia, dysarthria. - Bed requested for Telemetry/MedSurg (Inpatient). - Status is Inpatient Admission. lp1 - Condition is Fair. - Problem is new. - Symptoms are unchanged. UTI on Admission? No Signatures: Dispatcher [employer] [facility] Arnaud Driscoll RN RN sg Eliel Chilel MD MD kdr Yarely Urbina RN RN lp1 Stephenie Jose RN RN cg Corrections: (The following items were deleted from the chart) 20:42 19:01 Hospitalization Ordered by Cintia Larsen MD for Inpatient Admission. Preliminary cg diagnosis is Left sided weakness, Confusion, dysphasia, dysarthria. Bed requested for Telemetry/MedSurg (Inpatient). Status is Inpatient Admission. Condition is Fair. Problem is new. Symptoms are unchanged. UTI on Admission? No. kdr 21:39 20:42 04/24/2019 19:01 Hospitalization Ordered by Cintia Larsen MD for Inpatient lp1 Admission. Preliminary diagnosis is Left sided weakness, Confusion, dysphasia, dysarthria. Bed requested for Telemetry/MedSurg (Inpatient). Status is Inpatient Admission. Condition is Fair. Problem is new. Symptoms are unchanged. UTI on Admission? No. cg
[2019-04-24 19:43] LABS: Urine Bacteria >50 /HPF (<20); Urine Culture Reflex Order REFLEXED; Urine Mucus 1+ /HPF (NONE SEEN)
--- NOTE | 2019-04-24 20:04 | RAD REPORT ---
EXAM DESCRIPTION: CTAbdomen Pelvis W Contrast - 04/24/2019 7:56 pm CLINICAL HISTORY: Abdominal pain. Suprapubic mass COMPARISON: Abdomen Pelvis W Contrast dated 10/22/2017; Abdomen Pelvis W Contrast dated 02/03/2017; Abdomen Pelvis W Contrast dated 10/25/2015 TECHNIQUE: Biphasic CT imaging of the abdomen and pelvis was performed with 100 ml non-ionic IV cont rast. All CT scans are performed using dose optimization technique as appropriate and may include automated exposure control or mA/KV adjustment according to patient size. FINDINGS: Small pleural effusions are present, slightly greater on the left, with atelectasis in bot h lung bases. Pacer wires are present in the inferior aspect of the heart. The liver demonstrates small low-density lesion in the right lobe posteriorly measuring 10 mm, nonspe cific. No significant intra or extrahepatic biliary tree dilatation. The spleen, pancreas, adrenal gl ands and kidneys show no acute process. No bowel obstruction, free air, free fluid or abscess. Sigmoid colon thickening is present were sever al diverticula are present noted. The appendix is not identified as a discrete structure, however, no secondary findings of appendicitis are identified. No evidence of significant lymphadenopathy. Right total hip arthroplasty noted. Moderate lumbar degenerative changes. IMPRESSION: Thickening of the sigmoid colon is present with several diverticula present in the regio n. Very little if any inflammatory changes are present in the region. Suggest followup colonoscopy as sessment if not recently performed. Small bilateral pleural effusions.
[2019-04-24 20:06] LABS: Urine Blood 1+ (NEG); Urine Glucose NEGATIVE (NEG); Urine Protein NEGATIVE (NEG)
[2019-04-24] MEDS ORDERED: ACETAMINOPHEN 500 MG TAB PO PRN (20:31)
[2019-04-24] MEDS ORDERED: ONDANSETRON 4 MG/2 ML VIAL IV PRN (20:31)
[2019-04-24] MEDS ORDERED: ATORVASTATIN 20 MG TAB PO SCH (21:00)
[2019-04-24] MEDS: NA CHLORIDE 0.9% 1,000 ML IV SCH (21:00)
[2019-04-24 23:12] LABS: Protime INR 1.28
[2019-04-25] MEDS: NA CHLORIDE 0.9% 1,000 ML IV SCH ×2 (04:14→21:11)
[2019-04-25 06:18] LABS: Absolute Lymphocytes (CBC) 0.9 K/uL (0.7-4.9); Basophils % 0.3 % (0-1.3); Lymphocytes % 24.2 % (15.3-44.8); MPV 6.8 fL (7.6-11.3); RBC Red Blood Cell Count 3.45 M/uL (3.86-4.86)
[2019-04-25 06:31] LABS: ALT/SGPT 10 U/L (12-78); AST/SGOT 15 U/L (15-37); Albumin 2.2 g/dL (3.4-5.0); Alkaline Phosphatase 51 U/L (45-117); BUN Blood Urea Nitrogen 14 mg/dL (7-18); Bicarbonate 28 mmol/L (21-32); Bilirubin Total 0.4 mg/dL (0.2-1.0); Glucose Level 77 mg/dL (74-106); HDL Cholesterol 30 mg/dL (40-60); LDL Cholesterol, Calculated 39 (<130); Magnesium 1.5 mg/dL (1.8-2.4); Protein, Total 5.7 g/dL (6.4-8.2); Sodium Level 138 mmol/L (136-145)
[2019-04-25] MEDS ORDERED: KCL 20 MEQ/100 mL IVPB 20 MEQ/100 ML BAG IV SCH (08:00)
[2019-04-25] MEDS: CEFTRIAXONE/SWI 1gm 1 GM/10 ML SYR IV SCH ×2 (08:03→21:12)
--- NOTE | 2019-04-25 08:03 | EKG ---
Test Date: 2019-04-24 Test Time: 17:06:36 Heel Room Supervisor: MIRANDA MEASUREMENT RESULTS: Intervals: Rate: 70 [place]: QRSD: 192 QT: 474 QTc: 511 [place]: P: [place]: QRS: -64 T: 116 INTERPRETIVE STATEMENTS: Rhythm consistent with VVI pacing Abnormal ECG Compared to ECG 11/09/2018 08:47:04 Atrial pacing is no longer present Electronically Signed On 04-25-19 08:02:18 NEW PRODUCT TRAINER by Ramses Mcarthur
[2019-04-25] MEDS ORDERED: ENOXAPARIN 40 MG/0.4 ML SQ SCH (09:00)
[2019-04-25] MEDS ORDERED: CLOPIDOGREL 75 MG TABLET PO SCH (09:00)
[2019-04-25] MEDS ORDERED: ASPIRIN EC 81 MG TAB PO SCH (09:00)
[2019-04-25 09:09] LABS: Blood Morphology Comment NOT SEEN (NOT SEEN); Platelet Estimate DECR; Urine White Blood Cell Casts OK
--- NOTE | 2019-04-25 09:27 | P.HP ---
Certification for Inpatient Patient admitted to: Inpatient With expected LOS: >2 Midnights Patient will require the following post-hospital care: None Practitioner: I am a practitioner with admitting privileges, knowledge of patient current condition, hospital course, and medical plan of care. Services: Services provided to patient in accordance with Admission requirements found in Title 42 Section 412.3 of the Code of Federal Regulations Patient History Date of Service: 04/24/19 Reason for admission: WEAKNESS AND APHASIA History of Present Illness: PATIENT IS AN 84-YEAR-OLD FEMALE WHO IS A RESIDENT AT [facility] WHO IS BEEN HAVING WEAKNESS AND ALTERED MENTAL STATUS FOR THE LAST FEW DAYS. FACILITY STATES THAT SHE STARTED BEHAVING DIFFERENTLY ON WEDNESDAY. PATIENT WAS NOTED TO BE MORE APHASIC AND WORSENING WEAKNESS. PATIENT WAS BROUGHT INTO THE HOSPITAL FOR FURTHER EVALUATION. PATIENT'S URINALYSIS REVEALED A URINARY TRACT INFECTION. PATIENT WILL BE ADMITTED TO THE HOSPITAL FOR FURTHER EVALUATION. PATIENT'S DAUGHTER IS THE CATEGORY ANALYST AT OUR FACILITY. WILL DISCUSS WITH HER REGARDING FURTHER PLAN OF CARE. PATIENT HAS A PACEMAKER AND CANNOT GET A MRI. WE WILL GET PHYSICAL THERAPY AND SPEECH THERAPY TO EVALUATE THE PATIENT. Allergies codeine [Codeine] Allergy (Verified 10/26/15 00:41) Itching/Hives/Rash Home Medications: Amlodipine Besylate 1 tab PO DAILY 04/25/19 Atorvastatin Calcium [Lipitor*] 1 tab PO DAILY 04/25/19 Buspirone HCl [Buspar] 1 tab PO TID 04/25/19 Cyanocobalamin [Vitamin B-12*] 1 tab PO DAILY 04/25/19 Dextromethorpan-Quinidine 1 tab PO DAILY 04/25/19 Divalproex [Depakote Sprinkle*] 375 mg PO TID 04/25/19 Ferrous Sulfate [Ferrous Sulfate*] 1 tab PO DAILY 04/25/19 Furosemide [Lasix*] 1 tab PO DAILY 04/25/19 Loperamide [Imodium*] 2 tab PO PRN MDD 4 04/25/19 Melatonin [Melatonin*] 6 mg PO BEDTIME 04/25/19 Metoprolol Tartrate [Lopressor*] 12.5 mg PO BID 04/25/19 Potassium Chloride 2 tab PO DAILY 04/25/19 Rivaroxaban [Xarelto] 1 tab PO DAILY 04/25/19 Tramadol HCl [Ultram] 1 tab PO Q6H PRN 04/25/19 Michael [Michael*] 1 pkt PO BID #60 powd.pack 04/26/19 - Past Medical/Surgical History Has patient received pneumonia vaccine in the past: Yes Diabetic: Yes -: DM-2 (NIDDM) -: DYSLIPIDEMIA -: HYPERTENSION -: COPD -: major depressive disorder -: psedobulbar affect -: anemia -: dementia -: Afib -: CHF -: cognitive communication deficit -: CHOLECYSTECTOMY -: APPENDECTOMY -: BILATERAL CATARACTS -: knee replacement bilat/biomet product -: carpul tunnel bilat wrist/hands -: hip right replacement -: r.shoulder replacement - Family History Mother Medical History: Diabetes - Social History Smoking Status: Unknown if ever smoked Place of Residence: Jail Review of Systems 10-point ROS is otherwise unremarkable Physical Examination - Vital Signs Temperature: 97.3 F Blood Pressure: 139/78 Pulse: 75 Respirations: 18 Pulse Ox (%): 97 - Physical Exam General: Alert, In no apparent distress, Oriented x3 HEENT: Atraumatic, Normocephalic Neck: 2+ carotid pulse no bruit, JVD not distended, No Thyromegaly, Without JVD or thyroid abnormality Respiratory: Clear to auscultation bilaterally, Normal air movement Cardiovascular: Regular rate/rhythm, Normal S1 S2, Systolic murmur Gastrointestinal: Normal bowel sounds, Soft and benign, Non-distended, No tenderness, No rebound, No guarding Musculoskeletal: No clubbing Integumentary: No rashes Neurological: Abnormal gait, Abnormal strength, Abnormal reflexes, Abnormal affect Lymphatics: No axilla or inguinal lymphadenopathy Urinary: Other External genitalia: No edema - Studies Laboratory Data (last 24 hrs) 04/24/19 18:10: WBC 4.1 L, Hgb 11.2 L, Hct 32.5 L, Plt Count 106 L 04/24/19 18:10: Sodium 137, Potassium 3.9, BUN 20 H, Creatinine 0.64, Glucose 97 , Total Bilirubin 0.4, AST 15, ALT 10 L, Alkaline Phosphatase 59, Lipase 50 L Assessment & Plan - Problems (Diagnosis) (1) Toxic encephalopathy Current Visit: Yes Status: Acute (2) History of colitis Current Visit: No Status: Acute (3) Hypertension Onset Date: 02/03/17 Current Visit: No Status: Chronic Qualifiers: Hypertension type: essential hypertension Qualified Code(s): I10 - Essential (primary) hypertension (4) UTI (urinary tract infection) Onset Date: 10/28/15 Current Visit: No Status: Acute Qualifiers: Urinary tract infection type: acute cystitis Hematuria presence: without hematuria Qualified Code(s): N30.00 - Acute cystitis without hematuria (5) Diabetes mellitus, type II Onset Date: 02/03/17 Current Visit: No Status: Chronic Qualifiers: Diabetes mellitus intermediate project manager insulin use: without snf use Diabetes mellitus complication status: without complication Qualified Code(s): E11.9 - Type 2 diabetes mellitus without complications - Plan PLAN: 1. CONTINUE WITH IV ANTIBIOTIC THERAPY 2. CONTINUE WITH IV HYDRATION 3. NEUROCHECKS Q.4 HR 4. REVIEW HOME MEDICATIONS AND MAKE SURE PATIENT DID NOT HAVE MEDICATION REACTION 5. DEPAKOTE LEVEL 6. MONITOR LABS AND ELECTROLYTES CLOSELY 7. AWAIT URINE CULTURE RESULTS AND AWAIT BLOOD CULTURES 8. GI AND DVT PROPHYLAXIS Discharge Plan: Jail Plan to discharge in: Greater than 2 days - Advance Directives Does patient have a Living Will: No Does patient have a Durable POA for Healthcare: No - Code Status/Comfort Care Code Status Assessed: Yes Code Status: Full Code Critical Care: No Time Spent Managing PTS Care (In Minutes): 45
[2019-04-25] MEDS ORDERED: TRAMADOL HCL 50 MG TAB PO PRN (09:34)
[2019-04-25] MEDS ORDERED: LOPERAMIDE HCL 2 MG CAPSULE PO PRN ×2 (10:00→11:48)
--- NOTE | 2019-04-25 11:32 | ECHO ---
HEIGHT: 5 ft 4 in WEIGHT: 179 lb 12.8 oz DATE OF STUDY: 04/25/[address]: Cintia Larsen MD 2-DIMENSIONAL: YES M.MODE: YES DOPPLER: YES COLOR FLOW: YES TDS: YES PORTABLE: NO DEFINITY: NO BUBBLE STUDY: NO DIAGNOSIS: STROKE CARDIAC HISTORY: CATHERIZATION: NO SURGERY: NO PROSTHETIC VALVE: NO PACEMAKER: NO MEASUREMENTS (cm) DIASTOLIC (NORMALS) SYSTOLIC (NORMALS) IVSd 1.4 (0.6-1.2) LA Diam 5.2 (1.9-4.0) LVEF 60-69% LVIDd 4.5 (3.5-5.7) LVIDs 3.4 (2.0-3.5) %FS 25% LVPWd 1.5 (0.6-1.2) Ao Diam 3.1 (2.0-3.7) 2 DIMENSIONAL ASSESSMENT: RIGHT ATRIUM: NORMAL LEFT ATRIUM: DILATED RIGHT VENTRICLE: NORMAL LEFT VENTRICLE: LEFT VENTRICULAR HYPERTROPHY TRICUSPID VALVE: NORMAL MITRAL VALVE: MITRAL ANNULAR CALCIFICATION PULMONIC VALVE: NORMAL AORTIC VALVE: SCLEROSIS PERICARDIAL EFFUSION: NONE AORTIC ROOT: NORMAL LEFT VENTRICULAR WALL MOTION: NORMAL. DOPPLER/COLOR FLOW: MILD TRICUSPID REGURGITATION. NO AORTIC STENOSIS OR AORTIC REGURGITATION. ESTIMATED RIGHT VENTRICULAR SYSTOLIC PRESSURE 40mmHg, MILD PULMONARY HYPERTENSION. COMMENTS: NORMAL LEFT VENTRICULAR EJECTION FRACTION. LEFT VENTRICULAR HYPERTROPHY. DILATED LEFT ATRIUM. MITRAL ANNULAR CALCIFICATION. AORTIC SCLEROSIS. MILD TRICUSPID REGURGITATION. MILD PULMONARY HYPERTENSION. TECHNOLOGIST: BRYSON AVILA
[2019-04-25] MEDS: BUSPIRONE HCL 15 MG TABLET PO SCH ×2 (14:00→21:13)
[2019-04-25] MEDS: DIVALPROEX NA 125 MG CAP PO SCH ×2 (14:28→21:13)
--- NOTE | 2019-04-25 14:35 | P.PN ---
Subjective Date of Service: 04/25/19 Chief Complaint: WEAKNESS AND APHASIA Patient seen and examined at bedside with RN. Chart reviewed. Case discussed with RN at bedside. No complaints to offer. Granddaughter at bedside currently. Patient continues to be altered at this time. No overnight events noted Review of Systems 10-point ROS is otherwise unremarkable Physical Examination - Vital Signs Temperature: 97.8 F Blood Pressure: 158/73 Pulse: 70 Respirations: 16 Pulse Ox (%): 99 - Physical Exam General: In no apparent distress, Cachectic, Demented, Confused Respiratory: Clear to auscultation bilaterally, Normal air movement Cardiovascular: Regular rate/rhythm, Normal S1 S2 Gastrointestinal: Normal bowel sounds, No tenderness Musculoskeletal: No tenderness Integumentary: No rashes Neurological: Normal speech, Normal tone, Normal affect Lymphatics: No axilla or inguinal lymphadenopathy - Studies Laboratory Data (last 24 hrs) 04/24/19 18:10: WBC 4.1 L, Hgb 11.2 L, Hct 32.5 L, Plt Count 106 L 04/24/19 18:10: Sodium 137, Potassium 3.9, BUN 20 H, Creatinine 0.64, Glucose 97 , Total Bilirubin 0.4, AST 15, ALT 10 L, Alkaline Phosphatase 59, Lipase 50 L Medications List Reviewed: Yes Assessment And Plan - Current Problems (Diagnosis) (1) Toxic encephalopathy Current Visit: Yes Status: Acute Plan: Toxic encephalopathy most likely secondary to urinary tract infection -currently patient is alert and oriented times 1. At baseline per the family member at bedside. Patient is only oriented to person. -head CT in the ER negative for any acute abnormality -unable to complete MRI given the pacemaker -will continue monitor patient closely here in the hospital -avoid any sedating medication (2) UTI (urinary tract infection) Onset Date: 10/28/15 Current Visit: No Status: Acute Plan: Urinary tract infection -patient with history of multi-drug resistant urinary tract infection. UA currently with possibility of UTI -started on IV Rocephin. Will continue that here in the hospital -will follow up with urine culture short Qualifiers: Urinary tract infection type: acute cystitis Hematuria presence: without hematuria Qualified Code(s): N30.00 - Acute cystitis without hematuria (3) Generalized weakness Current Visit: Yes Status: Acute Plan: Patient with generalized weakness rule out CVA -head CT negative for any acute abnormality -MRI not done due to patient having pacemaker and 2 knee replaced -PTOT consulted here in the hospital -patient per family member at bedside has not been able to ambulate for past couple of months and has been gradually declining at the long-term. (4) Diabetes mellitus, type II Onset Date: 02/03/17 Current Visit: No Status: Chronic Plan: A.c. hs and insulin sliding scale Qualifiers: Diabetes mellitus jail insulin use: without jail use Diabetes mellitus complication status: without complication Qualified Code(s): E11.9 - Type 2 diabetes mellitus without complications (5) Hypertension Onset Date: 02/03/17 Current Visit: No Status: Chronic Plan: Restart home medication Qualifiers: Hypertension type: essential hypertension Qualified Code(s): I10 - Essential (primary) hypertension - Plan Pending clinical improvement at this time. Will continue monitor patient here in the hospital. Discharge Plan: Home Plan to discharge in: Greater than 2 days - Code Status/Comfort Care Code Status Assessed: Yes Critical Care: No
--- NOTE | 2019-04-25 16:22 | RAD REPORT ---
EXAM DESCRIPTION: US - Extremity Nonvascular Complete - 04/25/2019 3:47 pm CLINICAL HISTORY: Suprapubic swelling COMPARISON: None FINDINGS: Diffuse edema is present within the subcutaneous tissues. An abscess/hematoma is not seen. IMPRESSION: Diffuse edema within the subcutaneous tissues of the suprapubic region may indicate a ce llulitis.
[2019-04-25] MEDS: JUVEN PACKET PO SCH (21:00)
[2019-04-25] MEDS: METOPROLOL TAR 25 MG TAB PO SCH (21:12)
[2019-04-25] MEDS: MELATONIN 3 MG TABLET PO SCH (21:13)
--- NOTE | 2019-04-25 22:07 | CON ---
Reason For Consultation: Consultation called because of a possible stroke and confusion. History Of Present Illness: Ms. Chirinos is an 84-year-old right-handed patient with multipl e medical problems including atrial fibrillation, hypertension, fkvcvign-dh-crgncqov dementia, seen b y neurologist, Dr. Ely, who resides at the [facility] and on Wednesday, the , was noted to have more than usual left-sided facial drooping, slurred speech, and left arm weakness. No t clear why the patient was not brought into the hospital at that time; however, her admission was on the , which was yesterday, April 24. In the emergency room note, it is noted that she had left -sided facial drooping. The patient herself reported she did not have a problem. However, given her dementia it is not likely to represent facts. The patient's granddaughter who was in emergency room , noted the left facial and arm weakness as well as the staff. She had a head CT scan, which showed advanced generalized brain atrophy with advanced small vessel ischemic disease. There was no acute i schemic or hemorrhagic change identified. She has a pacemaker and is unable to get a brain MRI at [facility]. Since onset, the deficits have not changed significantly. It is a subtle left nasolabi al fold decrease with good facial excursions and the left arm does move, but less so than the right. Workup also revealed a urinary tract infection, for which she has already received 1 g of Rocephin. She has also received IV hydration. Past Medical History: Atrial fibrillation, advanced dementia, diabetes mellitus, gastroesophageal re flux disease, hypertension, peripheral neuropathy. Past Surgical History: Pacemaker placement, bilateral knee replacement, hysterectomy, and vaginal mcclure rgery. Social History: Patient resides at [facility]. No alcohol, tobacco, or IV drug use . Family History: Noncontributory. Allergies: CODEINE AND MACROBID. Medications At Home: Amlodipine 5 mg daily, atorvastatin 10 mg nightly, buspirone 15 mg 3 times kaya y, vitamin B12 a 1000 mcg daily, Depakote Sprinkles 125 mg 3 times daily, ferrous sulfate 325 mg twic e daily, Lasix 20 mg daily, loperamide 2 mg daily, melatonin 6 mg at night, metoprolol 12.5 mg 2 time s daily, Nuedexta 20/10 daily, potassium chloride 20 mEq daily, rivaroxaban 20 mg daily, tramadol 50 mg every 6 hours as needed. Review of Systems: Not reliable. The patient follows commands intermittently, but may clearly say hello and greetings, and says yes or no, but from speaking with the granddaughter, no recent fevers, chills, nausea, and v omiting. No reports of significant myalgias or arthralgias. Physical Examination: Vital Signs: Blood pressure 148/69, pulse 72, respiratory rate 16, temperature 97.9, oxygen saturati on 97%. Weight 179 pounds, height 5 feet 4 inches, BMI 30.7. General: Ms. Chirinos is sitting in a chair beside her bed. Her granddaughter is next to her. HEENT: She appears normocephalic, atraumatic. Sclerae anicteric. Oropharynx is moist and pink. Neck: Supple. Chest: Clear. Heart: Shows a rhythm being paced. Abdomen: Nondistended. Extremities: Show no significant edema or cyanosis. Neurological: She is alert and oriented to person, not to the exact floor or the date. She does fol low simple commands with encouragement. She does have an obvious left nasolabial fold, but good excu rsions when smiling and speaking. She denies sensory change left versus right, however, is not very reliable. The rest of her cranial nerves show no obvious deficits. Motor examination, she has at le ast 3+ strength in the left upper extremity proximally and distally and 4+ strength in the left lower extremity proximally and distally on the right side. She has 4+ strength proximally and distally in both upper and lower extremities. Sensory examination, she is unable to really do an extension exam ination. She appears to respond equally well to touch in the left and right side upper and lower ext remities. Unable to fully perform coordination examination and gait. Laboratory Studies: White blood cell count 3.8, hemoglobin 10.6, platelets 84. INR 1.28. Chemistri es sodium 138, potassium 2.0, chloride 105, carbon dioxide 28, BUN 14, creatinine 0.43, glucose range d from 74 to 82. Her lactic acid level is normal at 2 and procalcitonin is normal at less than 0.05. Liver function studies unremarkable and urinalysis did show 1+ esterase, 1+ blood, 5 to 10 red bloo d cells, 10 to 20 white blood cells, 10 to 20 squamous epithelia, and greater than 50 bacteria. Depa kote level of 63. Doppler of her lower extremities reveal a possible cellulitis in the lower extremi ties. Echocardiogram shows ejection fraction 60% to 69% with left ventricular hypertrophy, dilated l eft atrium, mitral annular calcification, aortic sclerosis, tricuspid regurgitation, and mild pulmona ry hypertension. Assessment: Ms. Chirinos is an 84-year-old patient with a possible right subcortical stroke producing some left-sided face, arm, and leg weakness. She does have multiple stroke risk factors and she has had advanced small vessel ischemic disease, but likely a vascular dementia. It is possible that the urinary tract infection on mast and area that it is involving the right hemisphere to produce her wea kness and when the urinary tract infection is treated and resolved, she may return to baseline. She is not able to get the brain MRI to definitively rule out a stroke. Plan: 1.We will suggest to repeat CT scan [address] last [address] scan, which may help distinguish an ac [place] stroke from a chronic process. 2.More hydration, as she appears dehydrated. 3.Continue with treatment for urine tract infection and possible cellulitis of the lower extremities . 4.Also aggressive management of blood sugars, but some permissive hypertension during this time to r educe the risk of an extension of stroke if this is an ischemic event. 5.I will follow the patient. If we can repeat the MRI, she may be evaluated by Physical Therapy to see if she may benefit from aggressive inpatient physical therapy. BECKI/EDDY Voice ID: [id number] Report ID: [id number]
[2019-04-26] MEDS: QUINIDINE PO SCH (09:00)
[2019-04-26] MEDS: DEXTROMETHORPHAN PO SCH (09:00)
[2019-04-26] MEDS: NA CHLORIDE 0.9% 1,000 ML IV SCH (09:36)
[2019-04-26] MEDS: CEFTRIAXONE/SWI 1gm 1 GM/10 ML SYR IV SCH ×2 (09:37→20:05)
[2019-04-26] MEDS: DIVALPROEX NA 125 MG CAP PO SCH ×3 (09:40→20:05)
[2019-04-26] MEDS: POTASSIUM CL SA 10 MEQ TAB PO SCH (09:40)
[2019-04-26] MEDS: ATORVASTATIN 10 MG TAB PO SCH (09:41)
[2019-04-26] MEDS: METOPROLOL TAR 25 MG TAB PO SCH ×2 (09:41→20:05)
[2019-04-26] MEDS: BUSPIRONE HCL 15 MG TABLET PO SCH ×3 (09:41→20:06)
[2019-04-26] MEDS: RIVAROXABAN 20 MG TABLET PO SCH (09:41)
[2019-04-26] MEDS: FUROSEMIDE 20 MG TABLET PO SCH (09:42)
[2019-04-26] MEDS: FERROUS SULFATE 325 MG TAB PO SCH (09:42)
[2019-04-26] MEDS: CYANOCOBALAMIN 1,000 MCG TAB PO SCH (09:43)
[2019-04-26] MEDS: AMLODIPINE 5 MG TAB PO SCH (09:43)
[2019-04-26] MEDS: JUVEN PACKET PO SCH ×2 (09:44→20:06)
[2019-04-26 15:48] LABS: BUN Blood Urea Nitrogen 15 mg/dL (7-18); Bicarbonate 25 mmol/L (21-32); Glucose Level 97 mg/dL (74-106); Magnesium 1.5 mg/dL (1.8-2.4); Phosphorus 3.2 mg/dL (2.5-4.9); Potassium 4.1 mmol/L (3.5-5.1); Sodium Level 137 mmol/L (136-145)
[2019-04-26 15:58] LABS: Absolute Lymphocytes (CBC) 1.3 K/uL (0.7-4.9); Basophils % 0.7 % (0-1.3); Lymphocytes % 28.9 % (15.3-44.8); RBC Red Blood Cell Count 3.34 M/uL (3.86-4.86)
[2019-04-26 16:14] LABS: Blood Morphology Comment NOT SEEN (NOT SEEN); Platelet Estimate DECR; Urine White Blood Cell Casts OK
--- NOTE | 2019-04-26 16:51 | P.PN ---
Subjective Date of Service: 04/26/19 Subjective: Improving PATIENT IS NEUROLOGICALLY DOING MUCH BETTER. ACCORDING TO FAMILY PATIENT IS PRETTY MUCH BACK TO THE BASELINE. WORK EARLY WAITING URINE CULTURE RESULTS. ONCE WE KNOW WHAT ANTIBIOTIC TO TREAT WITH PATIENT SHOULD BE ABLE TO DISCHARGE BACK TO THE SHELTER FACILITY. PATIENT WILL HAVE MEDICATIONS REVIEWED PRIOR TO DISCHARGE AND WILL HOLD ANY SEDATIVES. WILL ALSO MONITOR PATIENT'S NUTRITIONAL STATUS. PATIENT IS GIVEN HONEY THICK LIQUIDS AT THE NURSING FACILITY BUT DOES NOT DRINK ENOUGH FLUIDS WHICH WE WILL MONITOR HERE IN THE HOSPITAL. ANTICIPATE DISCHARGE IN A.M. Review of Systems is unable to be obtained Physical Examination - Vital Signs Temperature: 97.3 F Blood Pressure: 139/78 Pulse: 75 Respirations: 18 Pulse Ox (%): 97 - Physical Exam General: Alert, In no apparent distress HEENT: Atraumatic, PERRLA, EOMI Neck: Supple, JVD not distended Respiratory: Clear to auscultation bilaterally, Normal air movement Cardiovascular: Regular rate/rhythm, Normal S1 S2, Systolic murmur Gastrointestinal: Normal bowel sounds, Soft and benign, Non-distended, No tenderness Musculoskeletal: No clubbing, No swelling, No tenderness Integumentary: No rashes Neurological: Normal tone, Sensation intact, Cranial nerves 3-12 intact Lymphatics: No axilla or inguinal lymphadenopathy - Studies Medications List Reviewed: Yes Assessment & Plan - Problems (Diagnosis) (1) Toxic encephalopathy Current Visit: Yes Status: Acute (2) History of colitis Current Visit: No Status: Acute (3) Hypertension Onset Date: 02/03/17 Current Visit: No Status: Chronic Qualifiers: Hypertension type: essential hypertension Qualified Code(s): I10 - Essential (primary) hypertension (4) UTI (urinary tract infection) Onset Date: 10/28/15 Current Visit: No Status: Acute Qualifiers: Urinary tract infection type: acute cystitis Hematuria presence: without hematuria Qualified Code(s): N30.00 - Acute cystitis without hematuria (5) Diabetes mellitus, type II Onset Date: 02/03/17 Current Visit: No Status: Chronic Qualifiers: Diabetes mellitus supervisor intermediates insulin use: without supervisor intermediates use Diabetes mellitus complication status: without complication Qualified Code(s): E11.9 - Type 2 diabetes mellitus without complications - Plan PLAN: CONTINUE WITH CURRENT PLAN OF CARE MENTIONED BELOW 1. CONTINUE WITH IV ANTIBIOTIC THERAPY 2. CONTINUE WITH IV HYDRATION; ENCOURAGE ORAL INTAKE AND SEE HOW PATIENT HANDLES HER LIQUIDS. MAY NEED SPEECH THERAPY EVALUATION 3. NEUROCHECKS Q.4 HR 4. DISCONTINUE GEL AT NURSING HOMES 5. DEPAKOTE LEVEL WERE WITHIN NORMAL LIMITS 6. MONITOR LABS AND ELECTROLYTES CLOSELY 7. AWAIT URINE CULTURE RESULTS AND AWAIT BLOOD CULTURES 8. GI AND DVT PROPHYLAXIS Discharge Plan: Shelter Plan to discharge in: 24 Hours - Advance Directives Does patient have a Living Will: No Does patient have a Durable POA for Healthcare: No - Code Status/Comfort Care Code Status: Full Code Critical Care: No Time Spent Managing PTS Care (In Minutes): 35
[2019-04-26] MEDS: MELATONIN 3 MG TABLET PO SCH (20:05)
[2019-04-27] MEDS: NA CHLORIDE 0.9% 1,000 ML IV SCH (00:19)
[2019-04-27] MEDS: DEXTROMETHORPHAN PO SCH (09:00)
[2019-04-27] MEDS: QUINIDINE PO SCH (09:00)
[2019-04-27] MEDS: CEFTRIAXONE/SWI 1gm 1 GM/10 ML SYR IV SCH (09:31)
[2019-04-27] MEDS: ATORVASTATIN 10 MG TAB PO SCH (09:32)
[2019-04-27] MEDS: METOPROLOL TAR 25 MG TAB PO SCH ×2 (09:32→22:44)
[2019-04-27] MEDS: CYANOCOBALAMIN 1,000 MCG TAB PO SCH (09:32)
[2019-04-27] MEDS: RIVAROXABAN 20 MG TABLET PO SCH (09:33)
[2019-04-27] MEDS: BUSPIRONE HCL 15 MG TABLET PO SCH ×3 (09:33→22:15)
[2019-04-27] MEDS: DIVALPROEX NA 125 MG CAP PO SCH ×3 (09:33→22:16)
[2019-04-27] MEDS: AMLODIPINE 5 MG TAB PO SCH (09:33)
[2019-04-27] MEDS: FERROUS SULFATE 325 MG TAB PO SCH (09:33)
[2019-04-27] MEDS: FUROSEMIDE 20 MG TABLET PO SCH (09:33)
[2019-04-27] MEDS: POTASSIUM CL SA 10 MEQ TAB PO SCH (09:33)
[2019-04-27] MEDS: JUVEN PACKET PO SCH ×2 (09:33→21:00)
[2019-04-27] MEDS: NITROFURAN MACRO 50 MG CAP PO SCH (21:00)
[2019-04-27] MEDS: MELATONIN 3 MG TABLET PO SCH (22:15)
[2019-04-28 04:16] VITALS: BMI 31.9
[2019-04-28 06:07] VITALS: O2SAT 92
--- NOTE | 2019-04-28 06:52 | P.PN ---
Subjective Date of Service: 04/27/19 patient is doing well. No new complaints. Spoke with granddaughter and will arrange for placement at a different senior care as she does not want her to go back to [facility]. Will make arrangements for [facility]. Patient does have ESBL E. coli in urine. Spoke with pharmacy and will discharge with nitrofurantoin 50 mg p.o. b.i.d. for 2 weeks Review of Systems is unable to be obtained Physical Examination - Vital Signs Temperature: 98.3 F Blood Pressure: 118/59 Pulse: 70 Respirations: 18 Pulse Ox (%): 92 - Physical Exam General: Alert, In no apparent distress, Demented Respiratory: Clear to auscultation bilaterally, Normal air movement Cardiovascular: Regular rate/rhythm, Normal S1 S2 Gastrointestinal: Normal bowel sounds, Soft and benign, Non-distended Musculoskeletal: No clubbing, No swelling Neurological: Dementia - Studies Microbiology Data (last 24 hrs): 04/24/19 19:08 Clean Catch Urine [place] Count - Final >100,000 CFU/ML. 04/24/19 19:08 Clean Catch Urine - Final Escherichia Coli Esbl Medications List Reviewed: Yes Assessment & Plan - Problems (Diagnosis) (1) Toxic encephalopathy Current Visit: Yes Status: Acute (2) History of colitis Current Visit: No Status: Acute (3) Hypertension Onset Date: 02/03/17 Current Visit: No Status: Chronic Qualifiers: Hypertension type: essential hypertension Qualified Code(s): I10 - Essential (primary) hypertension (4) UTI (urinary tract infection) Onset Date: 10/28/15 Current Visit: No Status: Acute Qualifiers: Urinary tract infection type: acute cystitis Hematuria presence: without hematuria Qualified Code(s): N30.00 - Acute cystitis without hematuria (5) Diabetes mellitus, type II Onset Date: 02/03/17 Current Visit: No Status: Chronic Qualifiers: Diabetes mellitus remote computer terminal operator insulin use: without remote computer terminal operator use Diabetes mellitus complication status: without complication Qualified Code(s): E11.9 - Type 2 diabetes mellitus without complications (6) ESBL (extended spectrum beta-lactamase) producing bacteria infection Current Visit: Yes Status: Acute - Plan PLAN: 1. Continue nitrofurantoin 50 p.o. b.i.d. 2. Awaiting transfer to [place] 3. Neurologically patient back to baseline 4. Continue monitoring electrolytes and await transfer 5. Monitor hemodynamics closely 6. GI and DVT prophylaxis Discharge Plan: Longterm Plan to discharge in: Greater than 2 days - Advance Directives Does patient have a Living Will: Yes Does patient have a Durable POA for Healthcare: No - Code Status/Comfort Care Code Status: Full Code
[2019-04-28] MEDS: NITROFURAN MACRO 50 MG CAP PO SCH (09:00)
[2019-04-28] MEDS: QUINIDINE PO SCH (09:00)
[2019-04-28] MEDS: DEXTROMETHORPHAN PO SCH (09:00)
[2019-04-28] MEDS: BUSPIRONE HCL 15 MG TABLET PO SCH (09:33)
[2019-04-28] MEDS: DIVALPROEX NA 125 MG CAP PO SCH (09:33)
[2019-04-28] MEDS: POTASSIUM CL SA 10 MEQ TAB PO SCH (09:33)
[2019-04-28] MEDS: METOPROLOL TAR 25 MG TAB PO SCH (09:34)
[2019-04-28] MEDS: FERROUS SULFATE 325 MG TAB PO SCH (09:34)
[2019-04-28] MEDS: AMLODIPINE 5 MG TAB PO SCH (09:34)
[2019-04-28] MEDS: CYANOCOBALAMIN 1,000 MCG TAB PO SCH (09:34)
[2019-04-28] MEDS: FUROSEMIDE 20 MG TABLET PO SCH (09:34)
[2019-04-28] MEDS: ATORVASTATIN 10 MG TAB PO SCH (09:34)
[2019-04-28] MEDS: RIVAROXABAN 20 MG TABLET PO SCH (09:34)
[2019-04-28] MEDS: JUVEN PACKET PO SCH (09:35)
--- NOTE | 2019-04-28 11:39 | P.DS ---
Admission Date: 04/24/19 Discharge Date: 04/28/19 Disposition: TRANSFER TO JAIL Discharge Condition: FAIR Reason for Admission: WEAKNESS AND APHASIA - Problems (1) ESBL (extended spectrum beta-lactamase) producing bacteria infection Current Visit: Yes Status: Acute (2) Generalized weakness Current Visit: Yes Status: Acute (3) Toxic encephalopathy Current Visit: Yes Status: Acute (4) UTI (urinary tract infection) Onset Date: 10/28/15 Current Visit: No Status: Acute Qualifiers: Urinary tract infection type: acute cystitis Hematuria presence: without hematuria Qualified Code(s): N30.00 - Acute cystitis without hematuria (5) Diabetes mellitus, type II Onset Date: 02/03/17 Current Visit: No Status: Chronic Qualifiers: Diabetes mellitus hydro pneumatic tester insulin use: without hydro pneumatic tester use Diabetes mellitus complication status: without complication Qualified Code(s): E11.9 - Type 2 diabetes mellitus without complications (6) Hypertension Onset Date: 02/03/17 Current Visit: No Status: Chronic Qualifiers: Hypertension type: essential hypertension Qualified Code(s): I10 - Essential (primary) hypertension Brief History of Present Illness: patient admitted from [facility] , see full HPI Hospital Course: Patient with hx of DM , atrial fib , dementia , prior CVA , HTN admitted from [facility] for new onset confusion. She was noted with UTI on presentation evaluation and started on routine antibiotics . She was intially workedup for new CVA . Repeated imaging did not show any new infarct . She was evaluated by neurology and felt to be related to her UTI . U urine cx grew ESBL E coli and antibiotics was changed after discussion with pharmacy to nitrofurantoin to avoid need for IV picc line placement . She had no recurrence fever and wbc remain stable . She is still confused from her baseline dementia. She will be discharge back to [facility] today Vital Signs/Physical Exam: Temp Pulse Resp BP Pulse Ox 97.6 F 70 18 141/66 H 92 04/28/19 08:00 04/28/19 09:34 04/28/19 08:00 04/28/19 09:34 04/28/19 08:00 General: Alert HEENT: Atraumatic, Normocephalic, PERRLA Neck: Supple, 2+ carotid pulse no bruit, JVD not distended Respiratory: Crackles/rales (mild b/l , goor air enetry otherwise) Cardiovascular: Regular rate/rhythm, Normal S1 S2, Edema Gastrointestinal: Normal bowel sounds, No tenderness Neurological: Normal speech, Dementia Laboratory Data at Discharge: WBC 4.5 K/uL (4.3-10.9) D 04/26/19 15:20 Hgb 10.2 g/dL (12.0-15.0) L 04/26/19 15:20 Hct 30.0 % (36.0-45.0) L 04/26/19 15:20 Plt Count 84 K/uL (152-406) L 04/26/19 15:20 PT 15.0 SECONDS (9.5-12.5) H 04/24/19 22:34 INR 1.28 04/24/19 22:34 APTT 30.5 SECONDS (24.3-36.9) 04/24/19 22:34 Sodium 137 mmol/L (136-145) 04/26/19 15:20 Potassium 4.1 mmol/L (3.5-5.1) 04/26/19 15:20 BUN 15 mg/dL (7-18) 04/26/19 15:20 Creatinine 0.54 mg/dL (0.55-1.3) L 04/26/19 15:20 Glucose 97 mg/dL (74-106) 04/26/19 15:20 Phosphorus 3.2 mg/dL (2.5-4.9) 04/26/19 15:20 Magnesium 1.5 mg/dL (1.8-2.4) L 04/26/19 15:20 Total Bilirubin 0.4 mg/dL (0.2-1.0) 04/25/19 05:43 AST 15 U/L (15-37) 04/25/19 05:43 ALT 10 U/L (12-78) L 04/25/19 05:43 Alkaline Phosphatase 51 U/L (45-117) 04/25/19 05:43 Troponin I 0.02 ng/mL (0.0-0.045) 04/25/19 05:43 Triglycerides 89 mg/dL (<150) 04/25/19 05:43 Cholesterol 87 mg/dL (<200) 04/25/19 05:43 HDL Cholesterol 30 mg/dL (40-60) L 04/25/19 05:43 Cholesterol/HDL Ratio 2.90 04/25/19 05:43 Lipase 50 U/L (73-393) L 04/24/19 18:10 Imagings Data: Laboratory Results WBC 4.5 K/uL (4.3-10.9) D 04/26/19 15:20 RBC 3.34 M/uL (3.86-4.86) L 04/26/19 15:20 Hgb 10.2 g/dL (12.0-15.0) L 04/26/19 15:20 Hct 30.0 % (36.0-45.0) L 04/26/19 15:20 MCV 89.8 fL (80-100) 04/26/19 15:20 MCH 30.5 pg (27.0-35.0) 04/26/19 15:20 MCHC 34.0 g/dL (32.0-36.0) 04/26/19 15:20 RDW 19.4 % (12.1-15.2) H 04/26/19 15:20 Plt Count 84 K/uL (152-406) L 04/26/19 15:20 MPV 7.0 fL (7.6-11.3) L 04/26/19 15:20 Neutrophils % 58.9 % (41.7-73.7) 04/26/19 15:20 Lymphocytes % 28.9 % (15.3-44.8) 04/26/19 15:20 Monocytes % 9.8 % (3.3-12.3) 04/26/19 15:20 Eosinophils % 1.7 % (0-4.4) 04/26/19 15:20 Basophils % 0.7 % (0-1.3) 04/26/19 15:20 Absolute Neutrophils 2.6 K/uL (1.8-8.0) 04/26/19 15:20 Absolute Lymphocytes 1.3 K/uL (0.7-4.9) 04/26/19 15:20 Absolute Monocytes 0.4 K/uL (0.1-1.3) 04/26/19 15:20 Absolute Eosinophils 0.1 K/uL (0-0.5) 04/26/19 15:20 Absolute Basophils 0.0 K/uL (0-0.5) 04/26/19 15:20 Morphology Comment Not seen (NOT SEEN) 04/26/19 15:20 PT 15.0 SECONDS (9.5-12.5) H 04/24/19 22:34 INR 1.28 04/24/19 22:34 APTT 30.5 SECONDS (24.3-36.9) 04/24/19 22:34 Sodium 137 mmol/L (136-145) 04/26/19 15:20 Potassium 4.1 mmol/L (3.5-5.1) 04/26/19 15:20 Chloride 105 mmol/L (98-107) 04/26/19 15:20 Carbon Dioxide 25 mmol/L (21-32) 04/26/19 15:20 BUN 15 mg/dL (7-18) 04/26/19 15:20 Creatinine 0.54 mg/dL (0.55-1.3) L 04/26/19 15:20 Estimated GFR > 90 mL/min (=/>90) 04/26/19 15:20 Glucose 97 mg/dL (74-106) 04/26/19 15:20 POC Glucose 94 mg/dl (65-120) 04/28/19 08:07 Lactic Acid 2.0 mmol/L (0.4-2.0) 04/24/19 23:18 Calcium 7.5 mg/dL (8.5-10.1) L 04/26/19 15:20 Phosphorus 3.2 mg/dL (2.5-4.9) 04/26/19 15:20 Magnesium 1.5 mg/dL (1.8-2.4) L 04/26/19 15:20 Total Bilirubin 0.4 mg/dL (0.2-1.0) 04/25/19 05:43 Direct Bilirubin 0.2 mg/dL (0-0.2) 04/24/19 18:10 AST 15 U/L (15-37) 04/25/19 05:43 ALT 10 U/L (12-78) L 04/25/19 05:43 Alkaline Phosphatase 51 U/L (45-117) 04/25/19 05:43 Creatine Kinase 30 U/L (26-192) 04/24/19 18:10 CK-MB (CK-2) < 1.0 ng/mL (0.3-3.6) 04/24/19 18:10 Rapid Troponin I < 0.02 ng/mL (0.0-0.045) 04/24/19 18:10 Troponin I 0.02 ng/mL (0.0-0.045) 04/25/19 05:43 Serum Total Protein 5.7 g/dL (6.4-8.2) L 04/25/19 05:43 Albumin 2.2 g/dL (3.4-5.0) L 04/25/19 05:43 Globulin 3.5 g/dL (2.3-3.5) D 04/25/19 05:43 Albumin/Globulin Ratio 0.6 (1.1-1.8) L 04/25/19 05:43 Triglycerides 89 mg/dL (<150) 04/25/19 05:43 Cholesterol 87 mg/dL (<200) 04/25/19 05:43 LDL Cholesterol, Calc 39 (<130) 04/25/19 05:43 HDL Cholesterol 30 mg/dL (40-60) L 04/25/19 05:43 Cholesterol/HDL Ratio 2.90 04/25/19 05:43 Lipase 50 U/L (73-393) L 04/24/19 18:10 Procalcitonin < 0.05 ng/mL (<0.50) 04/24/19 18:10 Urine pH 7.0 (5.0-7.0) 04/24/19 19:22 Ur Specific [place] 1.020 (1.005-1.030) 04/24/19 19:22 Urine Ketones Negative (NEG) 04/24/19 19:22 Urine Blood 1+ (NEG) H 04/24/19 19:22 Urine Nitrite Negative (NEG) 04/24/19 19:22 Ur Leukocyte Esterase 1+ (NEG) H 04/24/19 19:22 Urine RBC 5-10 /HPF (NONE SEEN) H 04/24/19 19:08 Urine WBC 20-50 /HPF (<5) H 04/24/19 19:08 Ur Squamous Epith Cells 10-20 /HPF (NONE SEEN) H 04/24/19 19:08 Urine Bacteria >50 /HPF (<20) H 04/24/19 19:08 Urine Mucus 1+ /HPF (NONE SEEN) 04/24/19 19:08 Urine Culture Reflexed Reflexed 04/24/19 19:08 Urine Glucose Negative (NEG) 04/24/19 19:22 Urine Total Protein Negative (NEG) 04/24/19 19:22 Valproic Acid 63.0 ug/mL (50-100) 04/25/19 05:43 Home Medications: Amlodipine Besylate 1 tab PO DAILY 04/25/19 Atorvastatin Calcium [Lipitor*] 1 tab PO DAILY 04/25/19 Buspirone HCl [Buspar] 1 tab PO TID 04/25/19 Cyanocobalamin [Vitamin B-12*] 1 tab PO DAILY 04/25/19 Dextromethorpan-Quinidine 1 tab PO DAILY 04/25/19 Divalproex [Depakote Sprinkle*] 375 mg PO TID 04/25/19 Ferrous Sulfate [Ferrous Sulfate*] 1 tab PO DAILY 04/25/19 Furosemide [Lasix*] 1 tab PO DAILY 04/25/19 Loperamide [Imodium*] 2 tab PO PRN MDD 4 04/25/19 Melatonin [Melatonin*] 6 mg PO BEDTIME 04/25/19 Metoprolol Tartrate [Lopressor*] 12.5 mg PO BID 04/25/19 Potassium Chloride 2 tab PO DAILY 04/25/19 Rivaroxaban [Xarelto] 1 tab PO DAILY 04/25/19 Tramadol HCl [Ultram] 1 tab PO Q6H PRN 04/25/19 Michael [Michael*] 1 pkt PO BID #60 powd.pack 04/26/19 Nitrofuran Macro [Macrodantin*] 50 mg PO BID #14 cap 04/28/19 New Medications: Michael [Michael*] 1 pkt PO BID #60 powd.pack Nitrofuran Macro [Macrodantin*] 50 mg PO BID #14 cap Patient Discharge Instructions: OK TO DC IV AND DC HOME. FOLLOW-UP WITH PRIMARY CARE PROVIDER IN 1-2 WEEKS. FOLLOW-UP WITH CARDIOLOGY IN 1-2 WEEKS. RETURN TO THE ER IF symptoms worsen. CALL or TEXT DR. MERIDA AT [phone] IF ANY QUESTIONS REGARDING HOSPITAL STAY. PLEASE CALL THE FLOOR AT [phone] IF ANY MEDICATION OR NURSING QUESTIONS. Diet: Regular Activity: Fall precautions Time spent managing pt's care (in minutes): 40
[2019-04-28 13:51] VITALS: BP 135/67; TEMP 98.7
== END 2019-04-28 13:26 | DRG 689 ==
LOC: ER 16:56 → ERHOLD 20:32 → 4TH 21:10
PROVIDERS: ADMIT Hospitalist; ATTEND Hospitalist
DX: N30.00 Acute cystitis without hematuria (principal); G92 Toxic encephalopathy; Z16.12 Extended spectrum beta lactamase (ESBL) resistance; B96.20 Unspecified Escherichia coli [E. coli] as the cause of diseases classified elsewhere; I10 Essential (primary) hypertension; E11.9 Type 2 diabetes mellitus without complications; F03.90 Unspecified dementia, unspecified severity, without behavioral disturbance, psychotic disturbance, mood disturbance, and anxiety; I48.91 Unspecified atrial fibrillation; Z86.73 Personal history of transient ischemic attack (TIA), and cerebral infarction without residual deficits; Z95.0 Presence of cardiac pacemaker; Z96.653 Presence of artificial knee joint, bilateral
CPT/HCPCS: 36415; 70450; 71045; 74177; 76881; 80048; 80053; 80061; 80076; 80164; 81003; 81015; 82550; 82553; 82947; 83605; 83690; 83735; 84100; 84145; 84484; 85025; 85610; 85730; 87040; 87077; 87086; 87088; 87186; 92610; 93005; 93306; 93971; 96365; 96366; 97110; 97161; 97530; 99285; J0696; J1650; J7030; Q9967

== ENCOUNTER 2019-11-02 16:00 | Emergency (ER) | payer OTHER ==
--- NOTE | 2019-11-02 16:40 | RAD REPORT ---
EXAM DESCRIPTION: CT - [id number] - 11/02/2019 4:27 pm CLINICAL HISTORY: Trauma, head and neck injury. fall COMPARISON: Head C Spine Mpr Wo Con dated 11/09/2018 TECHNIQUE: Axial 5 mm thick images of the head were obtained. Axial 2 mm thick images of the cervical spine were obtained with sagittal and coronal reconstruction images generated and reviewed. All CT scans are performed using dose optimization technique as appropriate and may include automated exposure control or mA/KV adjustment according to patient size. FINDINGS: CT HEAD WITHOUT CONTRAST: No acute hemorrhage, hydrocephalus or extra-axial collection is identified. Advanced generalized brai n atrophy is present with advanced periventricular and deep white matter chronic microvascular ischem ic changes. No areas of brain edema or midline shift. The paranasal sinuses and mastoids are clear.The calvarium is intact. Heavy atherosclerosis of the ve rtebral arteries. CT CERVICAL SPINE WITHOUT CONTRAST: No fracture or subluxation.Multilevel degenerative changes are present of the cervical spine.No preve rtebral soft tissues swelling is identified. Carotid atherosclerosis bilaterally. IMPRESSION: No acute intracranial or cervical spine findings.
--- NOTE | 2019-11-02 16:41 | RAD REPORT ---
EXAM DESCRIPTION: CT - CTFB CLINICAL HISTORY: fall Fall, trauma, facial injury and pain. COMPARISON: No comparisons TECHNIQUE: Axial 2 mm thick images of the face were obtained with sagittal and coronal reconstructio n images. All CT scans are performed using dose optimization technique as appropriate and may include automated exposure control or mA/KV adjustment according to patient size. FINDINGS: Mildly comminuted facial bone fracture is seen.The mandible is intact. The globes and orbital contents are grossly unremarkable.The paranasal sinuses and mastoids are clear . IMPRESSION: Mild nasal bone fracture.
--- NOTE | 2019-11-02 16:43 | RAD REPORT ---
EXAM DESCRIPTION: RAD - Hand Right 3 View - 11/02/2019 4:37 pm CLINICAL HISTORY: PAIN COMPARISON: No comparisons FINDINGS: Diffuse osteopenia is seen. Prominent degenerative changes are seen radiocarpal joint. No acute fracture evident.
--- NOTE | 2019-11-02 16:55 | EDPHYS ---
Physician Documentation [facility] Name: Mari Chirinos Age: 84 yrs Sex: Female : 1935 Arrival Date: 11/02/2019 Time: 16:10 Bed 14 Private MD: ED Physician Eliel Chilel HPI: 11/01 16:17 This 84 yrs old Female presents to ER via EMS with complaints of Fall Injury. [facility] 16:17 Details of fall: The patient fell from a supine position, off a couch. Onset: The [facility] symptoms/episode began/occurred acutely. Associated injuries: The patient sustained injury to the head. Patient states she slipped off the couch. Complains of headache, nasal pain. Negative for vomiting, chest pain, complains of chronic abdominal pain. Complains of right hand pain. . Historical: - Allergies: 16:38 Codeine; hb 16:38 Macrobid; hb - Home Meds: 16:38 ABH Gel 1mg/25mg/1mg topically Q4h PRN [Active]; atorvastatin 10 mg Oral tab 1 tab hb nightly [Active]; buspirone 15 mg Oral tab 1 tab three times a day [Active]; cyanocobalamin (vitamin B-12) 1,000 mcg Oral tab daily [Active]; Depakote Sprinkles 125 mg Oral cpSP 3 caps 3 times per day [Active]; ferrous sulfate 325 mg (65 mg iron) Oral TbEC twice a day [Active]; Lasix 20 mg Oral tab 1 tab once daily [Active]; loperamide 2 mg Oral cap [Active]; melatonin 3 mg Oral tab 2 tab nightly [Active]; metoprolol tartrate 25 mg Oral tab 0.5 tab 2 times per day [Active]; Nuedexta 20-10 mg Oral cap 1 cap daily [Active]; potassium chloride 20 mEq Oral TbER 1 tab once daily [Active]; rivaroxaban 20 mg Oral 1 tab once daily [Active]; tramadol 50 mg Oral tab 1 tab every 6 hours for Pain [Active]; amlodipine 5 mg tab 1 tab once daily [Active]; - PMHx: 16:38 Diabetes - NIDDM; neuropathy; GERD; Pacemaker; Dementia; Atrial Fib; Hypertension; hb - PSHx: 16:38 Bilateral Knee Replacements; Hysterectomy; Vaginal Surgery; hb - Immunization history: Last tetanus immunization: unknown. - Social history:: Smoking status: Patient denies any tobacco usage or history of. ROS: 16:17 Constitutional: Negative for fever, chills, and weight loss, Cardiovascular: Negative jmm for chest pain, palpitations, and edema, Respiratory: Negative for shortness of breath, cough, wheezing, and pleuritic chest pain, Abdomen/GI: Negative for abdominal pain, nausea, vomiting, diarrhea, and constipation. 16:17 MS/extremity: Positive for pain. 16:17 Neuro: Positive for headache. 16:17 All other systems are negative. Exam: 16:17 Eyes: EOMI, no conjunctival erythema appreciated ENT: Moist Mucus Membranes Neck: jmm Trachea midline, Supple Chest/axilla: Normal chest wall appearance and motion. Cardiovascular: Regular rate and rhythm. No edema appreciated Respiratory: Normal respirations, no respiratory distress appreciated 16:17 Skin: General appearance color normal 16:17 Constitutional: The patient appears in no acute distress, alert, awake. 16:17 Head/face: nasal swelling noted, small right frontal hematoma. 16:17 Abdomen/GI: Inspection: abdomen appears normal, Bowel sounds: normal, Palpation: soft, mild abdominal tenderness, in the right upper quadrant and right lower quadrant. 16:17 Back: ROM is normal. 16:17 Musculoskeletal/extremity: Extremities: ROM: intact in all extremities, mild pain on palpation of the dorsum of the right hand, . 16:17 Skin: ecchymosis noted to the bridge of the nose. 16:17 Neuro: Motor: is normal. 16:17 Psych: Behavior/mood is pleasant, cooperative. Vital Signs: 16:04 BP 104 / 58; Pulse 69; Resp 16; Temp 97.9; Pulse Ox 98% on R/A; Weight 88.45 kg; Pain hb 7/10; 16:49 BP 92 / 65; Pulse 70; Resp 16; Pulse Ox 98% on R/A; vc 17:50 BP 108 / 64; Pulse 66; Resp 15; Pulse Ox 99% on R/A; hb 16:04 Ritter-Lopez (FACES) hb [place]rí[place] Coma Score: 16:05 Eye Response: spontaneous(4). Verbal Response: confused(4). Motor Response: obeys hb commands(6). Total: 14. Trauma Score (Adult): 16:05 Eye Response: spontaneous(1); Verbal Response: confused(1); Motor Response: obeys hb commands(2); Systolic BP: > 89 mm Hg(4); Respiratory Rate: 10 to 29 per min(4); [place] Score: 14; Trauma Score: 12 17:00 Eye Response: spontaneous(1); Verbal Response: confused(1); Motor Response: obeys vc commands(2); Systolic BP: > 89 mm Hg(4); Respiratory Rate: 10 to 29 per min(4); [place] Score: 14; Trauma Score: 12 17:50 Eye Response: spontaneous(1); Verbal Response: confused(1); Motor Response: obeys hb commands(2); Systolic BP: > 89 mm Hg(4); Respiratory Rate: 10 to 29 per min(4); Rodríguez Score: 14; Trauma Score: 12 MDM: 16:10 Patient medically screened. [facility] 16:52 Data reviewed: vital signs, nurses notes. Counseling: I had a detailed discussion with [facility] the patient and/or guardian regarding: the historical points, exam findings, and any diagnostic results supporting the discharge/admit diagnosis, radiology results, the need for outpatient follow up, to return to the emergency department if symptoms worsen or persist or if there are any questions or concerns that arise at home. ED course: imaging studies negative for an intracranial of cervical injury. Small nasal bone fracture. Family advised to follow up with ent for reevaluation. Family understood and agrees with the plan of care. . 11/01 16:10 Order name: CT Head C Spine; Complete Time: 16:52 [facility] 11/01 16:10 Order name: CT Facial Bones W/O Con; Complete Time: 16:52 [facility] 11/01 16:15 Order name: Hand Right 3 View XRAY; Complete Time: 16:52 [facility] Administered Medications: No medications were administered Disposition: 18:45 Co-signature as Attending Physician, Eliel Chilel MD I agree with the assessment and kdr plan of care. Disposition: 11/02/19 16:54 Discharged to Home. Impression: Fracture of nasal bones, Unspecified injury of head, Sprain of other part of right wrist and hand. - Condition is Stable. - Discharge Instructions: Head Injury, Adult, Nasal Fracture. - Medication Reconciliation Form, Thank You Letter, Antibiotic Education, Prescription Opioid Use form. - Follow up: Marisela Fowler MD; When: 2 - 3 days; Reason: Recheck today's complaints, Continuance of care, Re-evaluation by your physician. Signatures: Dispatcher [employer] EDMS Eliel Chilel MD MD kdr Mickail, Joel, PA PA jmm Baxter, Heather, MATT RN Ellen Lou RN RN vc Corrections: (The following items were deleted from the chart) 17:59 16:54 11/02/2019 16:54 Discharged to Home. Impression: Fracture of nasal bones; vc Unspecified injury of head; Sprain of other part of right wrist and hand. Condition is Stable. Forms are Medication Reconciliation Form, Thank You Letter, Antibiotic Education, Prescription Opioid Use. Follow up: Marisela Fowler; When: 2 - 3 days; Reason: Recheck today's complaints, Continuance of care, Re-evaluation by your physician. carol
--- NOTE | 2019-11-02 16:55 | ER ---
Nurse's Notes [facility] Name: Mari Chirinos Age: 84 yrs Sex: Female : 1935 Arrival Date: 11/02/2019 Time: 16:10 Bed 14 Private MD: Diagnosis: Fracture of nasal bones;Unspecified injury of head;Sprain of other part of right wrist and hand Presentation: 11/01 16:05 Acuity: JOJO 2 hb 16:05 Care prior to arrival: None. Mechanism of Injury: Fall out of bed. Trauma event hb details: Injury occurred in the [facility], Injury occurred: at home. Injury occurred: November 02, 2019. 16:05 Method Of Arrival: EMS: [facility] 16:05 Chief complaint: EMS states: Found face down on floor next to bed by [facility] hb staff, nowneil LOC, swelling noted to nose, small hematoma noted to forehead, no active bleeding. Takes Eliquis. 16:37 Coronavirus screen: Proceed with normal triage. Ebola Screen: No symptoms or risks hb identified at this time. Initial Sepsis Screen: Does the patient meet any 2 criteria? No. Patient's initial sepsis screen is negative. Does the patient have a suspected source of infection? No. Patient's initial sepsis screen is negative. Risk Assessment: Do you want to hurt yourself or someone else? Patient reports no desire to harm self or others. Onset of symptoms was November 02, 2019. Trauma Activation: Alert Physician: ED Physician; Name: ; Notified At: ; Arrived At: Physician: General Surgeon; Name: ; Notified At: ; Arrived At: Physician: Radiology; Name: ; Notified At: ; Arrived At: Physician: Respiratory; Name: ; Notified At: ; Arrived At: Physician: Lab; Name: ; Notified At: ; Arrived At: Historical: - Allergies: 16:38 Codeine; hb 16:38 Macrobid; hb - Home Meds: 16:38 ABH Gel 1mg/25mg/1mg topically Q4h PRN [Active]; atorvastatin 10 mg Oral tab 1 tab hb nightly [Active]; buspirone 15 mg Oral tab 1 tab three times a day [Active]; cyanocobalamin (vitamin B-12) 1,000 mcg Oral tab daily [Active]; Depakote Sprinkles 125 mg Oral cpSP 3 caps 3 times per day [Active]; ferrous sulfate 325 mg (65 mg iron) Oral TbEC twice a day [Active]; Lasix 20 mg Oral tab 1 tab once daily [Active]; loperamide 2 mg Oral cap [Active]; melatonin 3 mg Oral tab 2 tab nightly [Active]; metoprolol tartrate 25 mg Oral tab 0.5 tab 2 times per day [Active]; Nuedexta 20-10 mg Oral cap 1 cap daily [Active]; potassium chloride 20 mEq Oral TbER 1 tab once daily [Active]; rivaroxaban 20 mg Oral 1 tab once daily [Active]; tramadol 50 mg Oral tab 1 tab every 6 hours for Pain [Active]; amlodipine 5 mg tab 1 tab once daily [Active]; - PMHx: 16:38 Diabetes - NIDDM; neuropathy; GERD; Pacemaker; Dementia; Atrial Fib; Hypertension; hb - PSHx: 16:38 Bilateral Knee Replacements; Hysterectomy; Vaginal Surgery; hb - Immunization history: Last tetanus immunization: unknown. - Social history:: Smoking status: Patient denies any tobacco usage or history of. Screenin:10 Abuse screen: Denies threats or abuse. Denies injuries from another. Tuberculosis hb screening: No symptoms or risk factors identified. 16:37 Nutritional screening: No deficits noted. Fall Risk Total [place] Fall Scale indicates hb High Risk Score (45 or more points). Fall prevention measures have been instituted. Side Rails Up X 2 Frequent Obs/Assessments Occuring Family Present and informed to notify staff if the need to leave the bedside As available patient and family educated on Fall Prevention Program and Strategies. Primary Survey: 16:05 NO uncontrolled hemorrhage observed. A: The patient is alert. Airway: patent, No hb supplemental oxygen in use on arrival. Oral cavity: Trachea midline. Breathing/Chest: Respiratory pattern: regular, Respiratory effort: spontaneous, unlabored, Chest inspection: symmetrical rise and fall of the chest. Circulation: Skin color: pink, Skin temperature: warm, dry. Disability Alert. Exposure/Environment: There is no evidence of uncontrolled external bleeding. Obvious injury(ies) are noted at this time: swelling noted to nose, dried blood noted to both nares, small hematoma noted to forehead, reports left 5th finger pain A warming method has been applied:. 16:50 Reassessment Airway Airway Patent Breathing/Chest Respiratory pattern Regular vc Respiratory effort Spontaneous Unlabored Breath sounds Clear Chest inspection Symmetrical Circulation Pulses Palpable Temperature Warm. 17:45 Reassessment Airway Airway Patent Oxygen No O2 Breathing/Chest Respiratory pattern hb Regular Respiratory effort Spontaneous Unlabored Circulation Color [place] Disability Alert. Secondary Survey: 16:05 HEENT: Face Other small hematoma to forehead Nose: dried blood noted to nares, swelling hb noted to entire nose. Gastrointestinal: No deficits noted. : No deficits noted. No signs and/or symptoms were reported regarding the genitourinary system. Musculoskeletal: Reports pain in left 5th finger. Assessment: 16:15 General: Appears in no apparent distress. Behavior is calm, cooperative. Pain: Unable hb to use pain scale. FLACC scale score is 7 out of 10. Neuro: Level of Consciousness is awake, alert, obeys commands, confused, Oriented to person, place. EENT: swelling noted to nose, dried blood noted to bilateral nares, hematoma on forehead. Cardiovascular: Heart tones S1 S2 present Capillary refill < 3 seconds Patient's skin is warm and dry. Respiratory: Airway is patent Respiratory effort is even, unlabored, Respiratory pattern is regular, symmetrical, Breath sounds are clear bilaterally. GI: No deficits noted. No signs and/or symptoms were reported involving the gastrointestinal system. : No deficits noted. No signs and/or symptoms were reported regarding the genitourinary system. Derm: Skin is pink, warm \T\ dry. Musculoskeletal: Reports pain in left 5th finger. 16:50 Reassessment: Patient appears in no apparent distress at this time. Patient and/or vc family updated on plan of care and expected duration. Pain level reassessed. Patient states symptoms have not improved. 17:06 Reassessment: Patient appears in no apparent distress at this time. Patient and/or vc family updated on plan of care and expected duration. Pain level reassessed. Patients discharge pending transportation through EMS. Neuro: Level of Consciousness is awake, alert, obeys commands, confused, Oriented to person, place. 17:50 Reassessment: Patient appears in no apparent distress at this time. No changes from hb previously documented assessment. Patient and/or family updated on plan of care and expected duration. Pain level reassessed. Vital Signs: 16:04 BP 104 / 58; Pulse 69; Resp 16; Temp 97.9; Pulse Ox 98% on R/A; Weight 88.45 kg; Pain hb 7/10; 16:49 BP 92 / 65; Pulse 70; Resp 16; Pulse Ox 98% on R/A; vc 17:50 BP 108 / 64; Pulse 66; Resp 15; Pulse Ox 99% on R/A; hb 16:04 Arabella (FACES) hb [place] Coma Score: 16:05 Eye Response: spontaneous(4). Verbal Response: confused(4). Motor Response: obeys hb commands(6). Total: 14. Trauma Score (Adult): 16:05 Eye Response: spontaneous(1); Verbal Response: confused(1); Motor Response: obeys hb commands(2); Systolic BP: > 89 mm Hg(4); Respiratory Rate: 10 to 29 per min(4); [place] Score: 14; Trauma Score: 12 17:00 Eye Response: spontaneous(1); Verbal Response: confused(1); Motor Response: obeys vc commands(2); Systolic BP: > 89 mm Hg(4); Respiratory Rate: 10 to 29 per min(4); Rodríguez Score: 14; Trauma Score: 12 17:50 Eye Response: spontaneous(1); Verbal Response: confused(1); Motor Response: obeys hb commands(2); Systolic BP: > 89 mm Hg(4); Respiratory Rate: 10 to 29 per min(4); [place] Score: 14; Trauma Score: 12 ED Course: 16:10 Patient arrived in ED. em1 16:10 Chandan Sevilla PA is PHCP. [facility] 16:10 Eliel Chilel MD is Attending Physician. m 16:10 Patient has correct armband on for positive identification. Bed in low position. Call hb light in reach. Side rails up X2. Adult w/ patient. 16:12 Triage completed. hb 16:14 Arm band placed on. hb 16:15 Patient maintains SpO2 saturation greater than 95% on room air. hb 16:17 Thermoregulation: warm blanket given to patient. hb 16:29 CT Head C Spine In Process Unspecified. EDMS 16:29 CT Facial Bones W/O Con In Process Unspecified. EDMS 16:39 Hand Right 3 View XRAY In Process Unspecified. EDMS 16:40 Ellen Boston, RN is Primary Nurse. vc 16:54 Marisela Fowler MD is Referral Physician. [facility] 17:08 No provider procedures requiring assistance completed. Patient did not have IV access vc during this emergency room visit. Administered Medications: No medications were administered Intake: 16:05 PO: 0ml; Total: 0ml. hb Output: 16:05 Urine: 0ml; Total: 0ml. hb Outcome: 16:54 Discharge ordered by . [facility] 17:53 Discharged to [facility]. [facility] transfered vc 17:53 Condition: good 17:53 Discharge instructions given to family, Instructed on follow up and referral plans. Demonstrated understanding of follow-up care. 17:59 Patient left the ED. vc Signatures: Dispatcher [employer] EDMS Chandan Sevilla PA PA jmm Martinez, Eric em1 Mickie Raya, MATT RN hb Ellen Boston RN RN vc Corrections: (The following items were deleted from the chart) 16:13 16:12 Acuity: JOJO 2 hb hb
[2019-11-02 18:06] VITALS: TEMP 97.9
[2019-11-02 18:09] VITALS: BP 108/64; O2SAT 99
== END 2019-11-02 17:59 | disposition home or self-care (01) ==
LOC: ER 16:00
DX: S02.2XXA Fracture of nasal bones, initial encounter for closed fracture (principal); S63.8X1A Sprain of other part of right wrist and hand, initial encounter; S09.90XA Unspecified injury of head, initial encounter; W08.XXXA Fall from other furniture, initial encounter; Y93.9 Activity, unspecified; Y92.9 Unspecified place or not applicable; Z88.5 Allergy status to narcotic agent; I10 Essential (primary) hypertension; E11.9 Type 2 diabetes mellitus without complications; I48.91 Unspecified atrial fibrillation; Z95.0 Presence of cardiac pacemaker
CPT/HCPCS: 70450; 70486; 72125; 76377; 99284